=== PATIENT | female | born 1985 | race Caucasian/White ===

== ENCOUNTER → 2022-12-20 | Outpatient (CLI) | payer BC ==
[2022-12-20 16:15] LABS: Basophils # (A) 0.01 X 10*3/uL (0.00-0.10); Basophils % (A) 0.2 %; Eosinophils # (A) 0.03 X 10*3/uL (0.04-0.35); Eosinophils % (A) 0.7 %; HGB 13.2 d/dL (12.0-15.0); Lymphocytes # (A) 1.19 X 10*3/uL (0.90-5.00); Lymphocytes % (A) 29.3 %; MCH 30.6 pg (27.0-32.0); MCV 92.8 FL (80.0-97.0); Mean Platelet Volume 10.3 FL (9.5-12.2); Monocytes # (A) 0.32 X 10*3/uL (0.20-1.00); Monocytes % (A) 7.9 %; NRBC Per 100 WBC 0 X 10*3/uL (0.00-0.01); Neutrophils % (A) 61.7 %; Platelet Count 349 X 10*3/uL (140-440); RBC 4.31 X 10*6/uL (4.10-5.20); RDW 11.9 % (11.5-14.5); WBC 4.06 X 10*3/uL (4.50-10.00)
[2022-12-20 16:30] LABS: ALT 16 U/L (8-44); AST 15 U/L (13-35); Albumin 4.6 d/dL (3.8-4.9); Albumin/Globulin Ratio 1.84 Ratio (1.60-3.17); Alkaline Phosphatase 75 U/L (41-126); BUN/Creat Ratio 12.29 Ratio (12.00-20.00); Blood Urea Nitrogen 8.6 mg/dL (9.0-27.0); Calcium 9.5 mg/dL (8.7-10.3); Carbon Dioxide 25.8 mmol/L (21.6-31.8); Chloride 104 mmol/L (96-109); Chol/HDL Ratio 2.39 Ratio; Globulin 2.5 d/dL (1.6-3.3); Glucose 86 mg/dL (70-110); Potassium 4.2 mmol/L (3.5-5.5); Sodium 140 mmol/L (135-145); Total Bilirubin 0.5 mg/dL (0.3-1.2); Total Protein 7.1 d/dL (6.2-8.2); VLDL Calculation 8.34 mg/dL (5.00-40.00)
[2022-12-20 17:09] LABS: Hepatitis B Surface Antigen Nonreactive; Hepatitis C IgG Antibody Nonreactive
[2022-12-20 20:47] LABS: Hepatitis B Surface AB- Quant 6.7 mIU/mL
[2022-12-21 17:32] LABS: HIV 2 AB Non-Reactive (Non-Reactive); HIV AB P24 Non-Reactive (Non-Reactive); HIV P24 AG Non-Reactive (Non-Reactive)
== END | disposition home or self-care (01) ==
LOC: LABWHC1 10:36
PROVIDERS: ATTEND Family Medicine
DX: Z11.4 Encounter for screening for human immunodeficiency virus [HIV] (principal); Z11.59 Encounter for screening for other viral diseases; Z13.220 Encounter for screening for lipoid disorders; G44.019 Episodic cluster headache, not intractable; R12 Heartburn
CPT/HCPCS: 36415; 80053; 80061; 82306; 83036; 84443; 85025; 86706; 86780; 86803; 87340; 87390

== ENCOUNTER 2023-02-18 13:11 | Observation (INO) | payer BC ==
[2023-02-18 13:44] LABS: Basophils % (A) 0 %; Eosinophils # (A) 0.1 k/uL (0-0.7); Eosinophils % (A) 2 %; HCT 37.9 % (34.0-46.0); Lymphocytes # (A) 1.3 k/uL (1.0-4.8); Lymphocytes % (A) 29 %; MCH 31.1 pg (25.0-35.0); MCHC 34.3 g/dL (31.0-37.0); MCV 90.8 fL (80.0-100.0); Mean Platelet Volume 7.6; Monocytes # (A) 0.3 k/uL (0-1.0); Monocytes % (A) 6 %; Neutrophils # (A) 2.7 k/uL (1.3-7.7); Neutrophils % (A) 62 %; Platelet Count 320 k/uL (150-450); RBC 4.17 m/uL (3.80-5.40); RDW 12.1 % (11.5-15.5); WBC 4.4 k/uL (3.8-10.6)
[2023-02-18 13:56] LABS: ALT 17 U/L (4-34); AST 22 U/L (14-36); African American GFR (CKD) >90 (>60 ml/min/1.73 sqM); Albumin 4.4 g/dL (3.5-5.0); Alkaline Phosphatase 60 U/L (38-126); Anion Gap 7 mmol/L; Blood Urea Nitrogen 10 mg/dL (7-17); Calcium 9.7 mg/dL (8.4-10.2); Carbon Dioxide 25 mmol/L (22-30); Chloride 107 mmol/L (98-107); Glucose 100 mg/dL (74-99); INR 0.9 (<1.2); Magnesium 1.9 mg/dL (1.6-2.3); Non-African American GFR(CKD) >90 (>60 ml/min/1.73 sqM); Partial Thromboplastin Time 23.1 sec (22.0-30.0); Potassium 4.4 mmol/L (3.5-5.1); Prothrombin Time 9.9 sec (9.0-12.0); Sodium 139 mmol/L (137-145); Total Bilirubin 0.5 mg/dL (0.2-1.3); Total Protein 7.3 g/dL (6.3-8.2)
--- NOTE | 2023-02-18 14:39 | XR ---
EXAMINATION TYPE: XR chest 2V DATE OF EXAM: 02/18/2023 COMPARISON: NONE HISTORY: Chest pain TECHNIQUE: Frontal and lateral views of the chest are obtained. FINDINGS: There is no focal air space opacity. No evidence for pneumothorax. No pleural effusion. The cardiac silhouette size is within normal limits. The osseous structures are grossly intact. IMPRESSION: 1. No acute cardiopulmonary process.
[2023-02-18] MEDS ORDERED: FAMOTIDINE 20 MG/2 ML VIAL IV STA (15:33)
[2023-02-18] MEDS ORDERED: SODIUM CHLORIDE 0.9% 1,000 ML IV STA (15:33)
[2023-02-18] MEDS ORDERED: KETOROLAC 15 MG/ML 1 ML VIAL IVP STA (15:33)
[2023-02-18] MEDS ORDERED: ONDANSETRON 4 MG/2 ML VIAL IVP STA (15:33)
--- NOTE | 2023-02-18 16:25 | ED ---
Abdominal Pain HPI - General Chief Complaint: Abdominal Pain Stated Complaint: abdominal pain Time Seen by Provider: 02/18/23 15:18 Source: patient, RN notes reviewed Mode of arrival: ambulatory Limitations: no limitations - History of Present Illness Initial Comments: This is a 37-year-old female who presents to the emergency department for abdominal pain. States that over the last couple of days she has had increasing pain to the epigastric region with associated nausea. Every time she eats, she gets incredibly nauseous, and as a result she has stopped eating. States that this is not manageable for her, as she is taking care of young children. She is also 14 months and is currently . She is being evaluated by her primary care provider and being worked up for a hiatal hernia. Current workup at this time has included lab work and an x-ray, which were both found to be negative. Patient states that she is struggling with acid reflux as well and has been taking multiple antacids without relief in symptoms. Denies any fevers, chills, sore throat, cough, dyspnea, chest pain, palpitations, diarrhea, back pain, or headaches. MD Complaint: abdominal pain - Related Data Home Medications Medication Instructions Recorded Confirmed Azelastine/Fluticasone 1 spray EA NOSTRIL DAILY 02/18/23 02/18/23 [Azelastin-Flutic 137-50Mcg Spr] Calcium Carbonate [Tums] 1,000 mg PO ACHS PRN 02/18/23 02/18/23 Famotidine [Pepcid] 20 mg PO BID PRN 02/18/23 02/18/23 Promethazine [Phenergan] 25 mg PO Q6H PRN 02/18/23 02/18/23 SUMAtriptan [SUMAtriptan Nasal 5 mg NASAL BID PRN 02/18/23 02/18/23 [place]] Allergies Allergy/AdvReac Type Severity Reaction Status Date / Time banana Allergy Anaphylaxis Verified 02/19/23 16:04 Milam And Derivatives Allergy Anaphylaxis Verified 02/19/23 16:04 tree nut [Nut] Allergy Anaphylaxis Verified 02/19/23 16:04 Review of Systems ROS Statement: Those systems with pertinent positive or pertinent negative responses have been documented in the HPI. ROS Other: All systems not noted in ROS Statement are negative. Past Medical History Past Medical History: No Reported History History of Any Multi-Drug Resistant Organisms: None Reported Additional Past Surgical History / Comment(s): IVF Past Psychological History: No Psychological Hx Reported Smoking Status: Never smoker Past Alcohol Use History: None Reported Past Drug Use History: None Reported General Exam Limitations: no limitations General appearance: alert, in no apparent distress Head exam: Present: atraumatic, normocephalic, normal inspection Respiratory exam: Present: normal lung sounds bilaterally. Absent: respiratory distress, wheezes, rales, rhonchi, stridor Cardiovascular Exam: Present: regular rate, normal rhythm, normal heart sounds. Absent: systolic murmur, diastolic murmur, rubs, gallop, clicks GI/Abdominal exam: Present: soft, tenderness (RUQ and epigastric), normal bowel sounds. Absent: distended Neurological exam: Present: alert, oriented X3, CN II-XII intact Psychiatric exam: Present: normal affect, normal mood Skin exam: Present: warm, dry, intact, normal color. Absent: rash Course Vital Signs 02/18/23 02/18/23 02/18/23 13:16 17:56 22:09 Temperature 98.4 F 98.7 F 98.1 F Pulse Rate 89 75 Pulse Rate [ 74 Pulse Oximetery ] Respiratory 20 20 18 Rate Blood Pressure 128/92 108/63 Blood Pressure 112/76 [Right Arm] O2 Sat by Pulse 98 98 97 Oximetry 02/19/23 02/19/23 02/19/23 02:00 07:41 09:28 Temperature 98.1 F 97.9 F 97.8 F Pulse Rate 63 61 Pulse Rate [ 64 Pulse Oximetery ] Respiratory 16 18 18 Rate Blood Pressure 103/72 98/67 Blood Pressure 93/60 [Right Arm] O2 Sat by Pulse 95 98 98 Oximetry 02/19/23 15:30 Temperature 98.5 F Pulse Rate 86 Pulse Rate [ Pulse Oximetery ] Respiratory 16 Rate Blood Pressure 106/72 Blood Pressure [Right Arm] O2 Sat by Pulse 98 Oximetry Medical Decision Making - Medical Decision Making This is a 37-year-old female who presents to the emergency department for abdominal pain. Was pt. sent in by a medical professional or institution? @ -No Did you speak to anyone other than the patient for history? @ -No Did you review nursing and triage notes? @ -Yes, and I agree, it is accurate with regards to the patient's symptoms. Were old charts reviewed? @ -No Differential Diagnosis? @ -Differential Abdominal Pain Women: Appendicitis, Cholecystitis, diverticulosis, ischemic bowel, pancreatitis, hepatitis, UTI, gastroenteritis, AAA, incarcerated hernia, bowel obstruction, constipation, inflammatory bowel, hepatitis, peptic ulcer disease, splenic infarction, perforated viscus, vulvitis, ovarian torsion, PID, kidney stone, placenta abruption, this is not meant to be an all-inclusive list EKG interpreted by me (3pts min.)? @ -EKG interpreted by me demonstrating the following: X-rays interpreted by me (1pt min.)? @ -Chest x-ray obtained, my interpretation identifies no localized consolidations or infiltrates. CT interpreted by me (1pt min.)? @ -Not obtained U/S interpreted by me (1pt. min.)? @ -Gallbladder ultrasound obtained. My interpretation identifies cholelithiasis What testing was considered but not performed? (CT, X-rays, U/S, labs)? Why? @ -None What meds were considered but not given? Why? @ -None Did you discuss the management of the patient with other professionals? @ -Yes, Dr. Shrestha, who accepts the patient for admission. Did you reconcile home meds? @ -Yes Was smoking cessation discussed for >3mins.? @ -No Was critical care preformed (if so, how long)? @ -No Were there social determinants of health that impacted care today? How? (Homelessness, low income, unemployed, alcoholism, drug addiction, transportation, low edu. Level, literacy, decrease access to med. care, penitentiary, rehab)? @ -No Was there de-escalation of care discussed even if they declined? (Discuss DNR or withdrawal of care, Hospice)? @ -No What co-morbidities impacted this encounter? (DM, HTN, Smoking, COPD, CAD, Cancer, CVA, Hep., AIDS, mental health diagnosis, sleep apnea, morbid obesity)? @ -GERD Was patient admitted / discharged? @ -Admitted. Lab work obtained and found to be nonactionable. Chest x-ray reveals no acute process. Gallbladder ultrasound obtained revealing multiple gallstones without evidence for acute cholecystitis. She does have positive Gamez's sign on my physical examination and on the ultrasound. Findings reviewed with the patient. She is concerned with regards to how symptomatic she has been in that she has been unable to eat or care for her family given the severity of her pain, and is worried about being able tolerate this at home for the mean time. I spoke with Dr. Shrestha, who agrees to admit the patient with tentative plan for cholecystectomy tomorrow. Patient started on IV fluids and kept NPO after midnight. Undiagnosed new problem with uncertain prognosis? @ -None Drug Therapy requiring intensive monitoring for toxicity (Heparin, Nitro, Insulin, Cardizem)? @ -None Were any procedures done? @ -None Diagnosis/symptom? @ -Symptomatic cholelithiasis Acute, or Chronic, or Acute on Chronic? @ -Acute Uncomplicated (without systemic symptoms) or Complicated (systemic symptoms)? @ -Uncomplicated Side effects of treatment? @ -None Exacerbation, Progression, or Severe Exacerbation] @ -Not applicable Poses a threat to life or bodily function? @ -Yes This case was discussed in detail with the attending ED physician, Dr. Mercer. Presentation, findings, and treatment plan discussed in detail as well. - Lab Data Result diagrams: 02/18/23 13:29 02/18/23 13:29 Lab Results 02/18/23 02/18/23 02/18/23 Range/Units 13:29 13:29 13:29 WBC 4.4 (3.8-10.6) k/uL RBC 4.17 (3.80-5.40) m/uL Hgb 13.0 (11.4-16.0) gm/dL Hct 37.9 (34.0-46.0) % MCV 90.8 (80.0-100.0) fL MCH 31.1 (25.0-35.0) pg MCHC 34.3 (31.0-37.0) g/dL RDW 12.1 (11.5-15.5) % Plt Count 320 (150-450) k/uL MPV 7.6 Neutrophils % 62 % Lymphocytes % 29 % Monocytes % 6 % Eosinophils % 2 % Basophils % 0 % Neutrophils # 2.7 (1.3-7.7) k/uL Lymphocytes # 1.3 (1.0-4.8) k/uL Monocytes # 0.3 (0-1.0) k/uL Eosinophils # 0.1 (0-0.7) k/uL Basophils # 0.0 (0-0.2) k/uL PT 9.9 (9.0-12.0) sec INR 0.9 (<1.2) APTT 23.1 (22.0-30.0) sec Sodium 139 (137-145) mmol/L Potassium 4.4 (3.5-5.1) mmol/L Chloride 107 (98-107) mmol/L Carbon Dioxide 25 (22-30) mmol/L Anion Gap 7 mmol/L BUN 10 (7-17) mg/dL Creatinine 0.64 (0.52-1.04) mg/dL Est GFR (CKD-EPI)AfAm >90 (>60 ml/min/1.73 sqM) Est GFR (CKD-EPI)NonAf >90 (>60 ml/min/1.73 sqM) Glucose 100 H (74-99) mg/dL Calcium 9.7 (8.4-10.2) mg/dL Magnesium 1.9 (1.6-2.3) mg/dL Total Bilirubin 0.5 (0.2-1.3) mg/dL AST 22 (14-36) U/L ALT 17 (4-34) U/L Alkaline Phosphatase 60 (38-126) U/L Troponin I (0.000-0.034) ng/mL Total Protein 7.3 (6.3-8.2) g/dL Albumin 4.4 (3.5-5.0) g/dL 02/18/23 Range/Units 13:29 WBC (3.8-10.6) k/uL RBC (3.80-5.40) m/uL Hgb (11.4-16.0) gm/dL Hct (34.0-46.0) % MCV (80.0-100.0) fL MCH (25.0-35.0) pg MCHC (31.0-37.0) g/dL RDW (11.5-15.5) % Plt Count (150-450) k/uL MPV Neutrophils % % Lymphocytes % % Monocytes % % Eosinophils % % Basophils % % Neutrophils # (1.3-7.7) k/uL Lymphocytes # (1.0-4.8) k/uL Monocytes # (0-1.0) k/uL Eosinophils # (0-0.7) k/uL Basophils # (0-0.2) k/uL PT (9.0-12.0) sec INR (<1.2) APTT (22.0-30.0) sec Sodium (137-145) mmol/L Potassium (3.5-5.1) mmol/L Chloride (98-107) mmol/L Carbon Dioxide (22-30) mmol/L Anion Gap mmol/L BUN (7-17) mg/dL Creatinine (0.52-1.04) mg/dL Est GFR (CKD-EPI)AfAm (>60 ml/min/1.73 sqM) Est GFR (CKD-EPI)NonAf (>60 ml/min/1.73 sqM) Glucose (74-99) mg/dL Calcium (8.4-10.2) mg/dL Magnesium (1.6-2.3) mg/dL Total Bilirubin (0.2-1.3) mg/dL AST (14-36) U/L ALT (4-34) U/L Alkaline Phosphatase (38-126) U/L Troponin I <0.012 (0.000-0.034) ng/mL Total Protein (6.3-8.2) g/dL Albumin (3.5-5.0) g/dL - Radiology Data Radiology results: report reviewed, image reviewed Disposition Clinical Impression: Symptomatic cholelithiasis, Intractable pain Disposition: ADMITTED IP TO THIS HOSP
--- NOTE | 2023-02-18 16:28 | US ---
EXAMINATION TYPE: US gallbladder DATE OF EXAM: 02/18/2023 COMPARISON: NONE CLINICAL INDICATION: Female, 37 years old with history of Epigastric pain, nausea; abd pain with n/v TECHNIQUE: Multiple sonographic images of the right upper quadrant are obtained. FINDINGS: EXAM MEASUREMENTS: Liver Length: 15.9 cm Gallbladder Wall: 0.2 cm CBD: 0.5 cm Right Kidney: 11.1 x 4.2 x 3.6 cm Pancreas: wnl Liver: wnl Gallbladder: multiple stones seen filling up GB, no wall thickening Evidence for sonographic Gamez's sign: yes CBD: wnl Right Kidney: wnl IMPRESSION: Cholelithiasis.
[2023-02-18] MEDS ORDERED: NALOXONE 0.4 MG/ML 1 ML VIAL IV PRN (16:43)
[2023-02-18] MEDS ORDERED: ONDANSETRON 4 MG/2 ML VIAL IVP PRN (16:43)
[2023-02-18] MEDS ORDERED: MORPHINE SULFATE 4 MG/ML SYRINGE IV PRN (16:43)
[2023-02-18] MEDS: SODIUM CHLORIDE 0.9% 1,000 ML IV SCH (17:27)
[2023-02-18] MEDS ORDERED: SUMATRIPTAN 5 MG MISCELLANE PRN (17:45)
[2023-02-18] MEDS: ACETAMINOPHEN TAB 325 MG TAB PO PRN (22:54)
[2023-02-18] MEDS: PROMETHAZINE 25 MG TAB PO PRN (22:54)
[2023-02-19] MEDS: SODIUM CHLORIDE 0.9% 1,000 ML IV SCH ×3 (06:42→19:43)
[2023-02-19] MEDS: ACETAMINOPHEN TAB 325 MG TAB PO PRN ×2 (08:13→14:36)
[2023-02-19] MEDS: PROMETHAZINE 25 MG TAB PO PRN ×3 (08:14→20:51)
[2023-02-19] MEDS: FAMOTIDINE 20 MG TAB PO PRN (13:20)
--- NOTE | 2023-02-19 13:50 | P.CONS ---
History of Present Illness - Reason for Consult Preoperative clearance - History of Present Illness 37-year-old pleasant female is admitted the with the pain in the epigastric area associated with food severe pain. Patient also found to have cholelithiasis and patient is undergoing cholecystectomy medicine was consulted for preoperative clearance patient doesn't have any significant medical problems except for cluster headaches for which patient is on sumatriptan. Patient denied any fever chills patient doesn't have any clinical evidence of cholecystitis REVIEW OF SYSTEMS: CONSTITUTIONAL: No fever, no malaise, no fatigue. HEENT: No recent visual problems or hearing problems. Denied any sore throat. CARDIOVASCULAR: No chest pain, orthopnea, PND, no palpitations, no syncope. PULMONARY: No shortness of breath, no cough, no hemoptysis. GASTROINTESTINAL: As mentioned in HPI NEUROLOGICAL: No headaches, no weakness, no numbness. HEMATOLOGICAL: Denies any bleeding or petechiae. GENITOURINARY: Denies any burning micturition, frequency, or urgency. MUSCULOSKELETAL/RHEUMATOLOGICAL: Denies any joint pain, swelling, or any muscle pain. ENDOCRINE: Denies any polyuria or polydipsia. The rest of the 14-point review of systems is negative. PHYSICAL EXAMINATION: GENERAL: The patient is alert and oriented x3, not in any acute distress. Well developed, well nourished. HEENT: Pupils are round and equally reacting to light. EOMI. No scleral icterus. No conjunctival pallor. Normocephalic, atraumatic. No pharyngeal erythema. No thyromegaly. CARDIOVASCULAR: S1 and S2 present. No murmurs, rubs, or gallops. PULMONARY: Chest is clear to auscultation, no wheezing or crackles. ABDOMEN: Soft, nontender, nondistended, normoactive bowel sounds. No palpable organomegaly. MUSCULOSKELETAL: No joint swelling or deformity. EXTREMITIES: No cyanosis, clubbing, or pedal edema. NEUROLOGICAL: Gross neurological examination did not reveal any focal deficits. SKIN: No rashes. Assessment and plan -Cholelithiasis, preoperative sugars: Patient is low operative risk for surgery. Patient doesn't have any evidence of cholecystitis, preoperative antibiotics as per primary service -History of cluster headaches continue with home regimen DVT prophylaxis: Early ambulation Past Medical History Past Medical History: No Reported History Additional Past Medical History / Comment(s): cluster headaches History of Any Multi-Drug Resistant Organisms: None Reported Additional Past Surgical History / Comment(s): IVF, Additional Past Anesthesia/Blood Transfusion Reaction / Comm: headaches Past Psychological History: No Psychological Hx Reported Smoking Status: Never smoker Past Alcohol Use History: None Reported Past Drug Use History: None Reported Medications and Allergies Home Medications Medication Instructions Recorded Confirmed Type Azelastine/Fluticasone 1 spray EA NOSTRIL DAILY 02/18/23 02/18/23 History [Azelastin-Flutic 137-50Mcg Spr] Calcium Carbonate [Tums] 1,000 mg PO ACHS PRN 02/18/23 02/18/23 History Famotidine [Pepcid] 20 mg PO BID PRN 02/18/23 02/18/23 History Promethazine [Phenergan] 25 mg PO Q6H PRN 02/18/23 02/18/23 History SUMAtriptan [SUMAtriptan Nasal 5 mg NASAL BID PRN 02/18/23 02/18/23 History [place]] Allergies Allergy/AdvReac Type Severity Reaction Status Date / Time No Known Allergies Allergy Verified 02/18/23 17:28 Physical Exam Vitals: Vital Signs Temp Pulse Pulse Resp BP BP Pulse Ox 02/19/23 09:28 97.8 F 61 18 98/67 98 02/19/23 07:41 97.9 F 63 18 103/72 98 02/19/23 02:00 98.1 F 64 16 93/60 95 02/18/23 22:09 98.1 F 74 18 112/76 97 02/18/23 17:56 98.7 F 75 20 108/63 98 Intake and Output 02/18/23 02/19/23 02/19/23 22:59 06:59 14:59 Intake Total 500 1500 Balance 500 1500 Intake: Oral 500 1500 Other: # Voids 2 2 Weight 68.039 kg Results CBC & Chem 7: 02/18/23 13:29 02/18/23 13:29 Labs: Abnormal Lab Results - Last 24 Hours (Table) 02/18/23 Range/Units 13:29 Glucose 100 H (74-99) mg/dL
--- NOTE | 2023-02-19 14:10 | P.GSHP ---
History of Present Illness H&P Date: 02/19/23 CHIEF COMPLAINT: Abdominal pain HISTORY OF PRESENT ILLNESS: This is a 37-year-old female who presented with abdominal pain. She reports the pain is in the epigastric area and across the upper abdomen and radiates to the back. She has pain after eating. She reports this episode of pain has lasted for about 72 hours. She is had intermittent pain over the last 2 years. She feels that this pain had started during her . She's 14 months . She still pumping. Gallbladder ultr asound did show evidence of gallstones. She denies any fever chills or sweats. Denies any cardiac history. Denies being on any blood thinners. Denies any prior abdominal surgeries. PAST MEDICAL HISTORY: See below PAST SURGICAL HISTORY: See below MEDICATIONS: See below ALLERGIES: See below SOCIAL HISTORY: No illicit drug use. REVIEW OF SYSTEMS: CONSTITUTIONAL: Denies fever or chills. HEENT: Denies blurred vision, vision changes, or eye pain. Denies hemoptysis CARDIOVASCULAR: Denies chest pain or pressure. RESPIRATORY: No shortness of breath. GASTROINTESTINAL: See HPI for pertinent findings HEMATOLOGIC: Denies bleeding disorders. GENITOURINARY: Denies any blood in urine or increased urinary frequency. SKIN: Denies pruitis. Denies rash. PHYSICAL EXAM: VITAL SIGNS: Reviewed GENERAL: Well-developed in no acute distress. ABDOMEN: Soft. Nondistended. Tenderness on palpation in epigastric and left upper quadrant NEUROLOGIC: Alert and oriented. Cranial nerves II through XII grossly intact. LABORATORY DATA: WBC 4.4 Hgb 13 platelets 320 INR 0.9 Sodium 139 potassium 4.4 creatinine 0.64 Glucose 100 LFTs normal Urine hCG not detected IMAGING: Gallbladder ultrasound cholelithiasis Chest x-ray no acute cardiopulmonary process ASSESSMENT: 1. Abdominal pain across the upper abdomen with cholelithiasis noted on ultrasound 2. Symptomatic cholelithiasis PLAN: -Patient scheduled for laparoscopic cholecystectomy today with Dr. romano -Keep patient nothing by mouth -Continue IV fluids -Continue supportive care -Medicine service consulted for medical management Physician Director Of [employer] note has been reviewed by physician. Signing provider agrees with the documented findings, assessment, and plan of care. Past Medical History Past Medical History: No Reported History Additional Past Medical History / Comment(s): cluster headaches History of Any Multi-Drug Resistant Organisms: None Reported Additional Past Surgical History / Comment(s): IVF, Additional Past Anesthesia/Blood Transfusion Reaction / Comment(s): headaches Past Psychological History: No Psychological Hx Reported Smoking Status: Never smoker Past Alcohol Use History: None Reported Past Drug Use History: None Reported Medications and Allergies Home Medications Medication Instructions Recorded Confirmed Type Azelastine/Fluticasone 1 spray EA NOSTRIL DAILY 02/18/23 02/18/23 History [Azelastin-Flutic 137-50Mcg Spr] Calcium Carbonate [Tums] 1,000 mg PO ACHS PRN 02/18/23 02/18/23 History Famotidine [Pepcid] 20 mg PO BID PRN 02/18/23 02/18/23 History Promethazine [Phenergan] 25 mg PO Q6H PRN 02/18/23 02/18/23 History SUMAtriptan [SUMAtriptan Nasal 5 mg NASAL BID PRN 02/18/23 02/18/23 History [place]] Allergies Allergy/AdvReac Type Severity Reaction Status Date / Time No Known Allergies Allergy Verified 02/18/23 17:28 Surgical - Exam Vital Signs Temp Pulse Resp BP Pulse Ox 98.4 F 89 20 128/92 98 02/18/23 13:16 02/18/23 13:16 02/18/23 13:16 02/18/23 13:16 02/18/23 13:16 Results - Labs 02/18/23 13:29 02/18/23 13:29 Abnormal Lab Results - Last 24 Hours (Table) 02/18/23 Range/Units 13:29 Glucose 100 H (74-99) mg/dL Diabetes panel 02/18/23 Range/Units 13:29 Sodium 139 (137-145) mmol/L Potassium 4.4 (3.5-5.1) mmol/L Chloride 107 (98-107) mmol/L Carbon Dioxide 25 (22-30) mmol/L BUN 10 (7-17) mg/dL Creatinine 0.64 (0.52-1.04) mg/dL Glucose 100 H (74-99) mg/dL Calcium 9.7 (8.4-10.2) mg/dL AST 22 (14-36) U/L ALT 17 (4-34) U/L Alkaline Phosphatase 60 (38-126) U/L Total Protein 7.3 (6.3-8.2) g/dL Albumin 4.4 (3.5-5.0) g/dL Calcium panel 02/18/23 Range/Units 13:29 Calcium 9.7 (8.4-10.2) mg/dL Albumin 4.4 (3.5-5.0) g/dL Pituitary panel 02/18/23 Range/Units 13:29 Sodium 139 (137-145) mmol/L Potassium 4.4 (3.5-5.1) mmol/L Chloride 107 (98-107) mmol/L Carbon Dioxide 25 (22-30) mmol/L BUN 10 (7-17) mg/dL Creatinine 0.64 (0.52-1.04) mg/dL Glucose 100 H (74-99) mg/dL Calcium 9.7 (8.4-10.2) mg/dL Adrenal panel 02/18/23 Range/Units 13:29 Sodium 139 (137-145) mmol/L Potassium 4.4 (3.5-5.1) mmol/L Chloride 107 (98-107) mmol/L Carbon Dioxide 25 (22-30) mmol/L BUN 10 (7-17) mg/dL Creatinine 0.64 (0.52-1.04) mg/dL Glucose 100 H (74-99) mg/dL Calcium 9.7 (8.4-10.2) mg/dL Total Bilirubin 0.5 (0.2-1.3) mg/dL AST 22 (14-36) U/L ALT 17 (4-34) U/L Alkaline Phosphatase 60 (38-126) U/L Total Protein 7.3 (6.3-8.2) g/dL Albumin 4.4 (3.5-5.0) g/dL
[2023-02-19] MEDS ORDERED: HEPARIN SODIUM,PORCINE/PF 5,000 UNIT/0.5 ML SYRINGE SQ ONE (16:10)
[2023-02-19] MEDS ORDERED: LACTATED RINGERS 1,000 ML IV ONE (16:12)
[2023-02-19] MEDS ORDERED: HEPARIN SODIUM,PORCINE 5,000 UNIT/ML 1 ML VIAL SQ ONE (16:14)
[2023-02-19] MEDS ORDERED: DEXAMETHASONE SOD PHOSPHATE 4 MG/ML 1 ML VIAL IVP ONE (16:33)
[2023-02-19] MEDS ORDERED: MIDAZOLAM 2 MG/2 ML VIAL IVP ONE (16:35)
[2023-02-19] MEDS ORDERED: KETOROLAC 15 MG/ML 1 ML VIAL ONE (16:50)
[2023-02-19] MEDS ORDERED: fentaNYL (PF) 50 MCG/ML 2 ML AMP ONE (16:50)
[2023-02-19] MEDS ORDERED: GLYCOPYRROLATE 0.2 MG/ML 2 ML VIAL ONE (16:50)
[2023-02-19] MEDS ORDERED: LIDOCAINE 2% INJ 20 MG/ML (2 ML VIAL) ONE (16:50)
[2023-02-19] MEDS ORDERED: NEOSTIGMINE 1 MG/ML 10 ML VIAL ONE (16:50)
[2023-02-19] MEDS ORDERED: PROPOFOL 10 MG/ML 20 ML VIAL IV ONE (16:50)
[2023-02-19] MEDS ORDERED: ROCURONIUM 10 MG/ML (5 ML VIAL) IV ONE (16:50)
[2023-02-19] MEDS ORDERED: HYDROmorphone (PF) 1 MG/ML ONE (16:50)
[2023-02-19] MEDS ORDERED: SUCCINYLCHOLINE CHLORIDE 200 MG/10 ML VIAL IV ONE (16:50)
[2023-02-19] MEDS ORDERED: SODIUM CHLORIDE 0.9% 50 ML with ceFAZolin 2 GM IV ONE ×2 (16:55)
[2023-02-19] MEDS ORDERED: LIDOCAINE 1%-EPI 1:100,000 50 ML VIAL SQ ONE ×2 (17:00)
[2023-02-19] MEDS ORDERED: HYDROmorphone 1 MG/ML 1 ML SYRINGE IVP PRN (17:45)
--- NOTE | 2023-02-19 17:45 | P.OP ---
Date of Procedure: 02/19/23 Preoperative Diagnosis: Cholecystitis Cholelithiasis Postoperative Diagnosis: Same Procedure(s) Performed: Laparoscopic cholecystectomy Anesthesia: TARI Surgeon: Chris Shrestha Estimated Blood Loss (ml): 5 Pathology: other (Gallbladder) Condition: stable Disposition: PACU Description of Procedure: The patient was placed on the operating table. The patient received a general endotracheal tube anesthesia. The patients abdomen was prepped and draped in the usual sterile fashion. Through an infraumbilical stab incision, the fascia of the anterior abdominal wall was grasped with a pair of Kochers and then the Veress needle was placed in the peritoneal cavity. Position of the Veress needle was confirmed with positive drop test. The abdomen was then insufflated. After adequate insufflation, the 10 mm trocar was placed in the peritoneal cavity. Following this the laparoscope was placed in the peritoneal cavity. The patient was placed in the head-up, right side up position and then a 5 mm trocar was placed in the right lateral and right subcostal po sition under direct visualization. A 8 mm trocar was placed in the epigastric position. The gallbladder was grasped in the fundus and infundibulum. Traction on the gallbladder was placed in the lateral and the cephalad positions. The triangle of Calot was visualized.. The cystic duct was bluntly dissected until the union of the cystic duct and common bile duct was seen. A critical view of safety was achieved. The cystic duct was then divided and sealed with the Harmonic scissors. A PDS Endoloop was then placed throughout the cystic duct stump. The cystic artery divided and sealed with the Harmonic scissors. The gallbladder was then removed from the liver bed using Harmonic scissors. The gallbladder was then extracted through the epigastric port site. Operative field was checked for any bleeding spots and Harmonic scissors was used to coagulate the liver bed. The abdomen was irrigated. The trocars were removed. The skin was closed using interrupted 3-0 Vicryl suture. Dermabond dressing were applied. The patient tolerated the procedure well.
[2023-02-19] MEDS ORDERED: HYDROmorphone 0.5 MG/0.5 ML SYRINGE IVP ONE (18:25)
[2023-02-19] MEDS: MORPHINE SULFATE 2 MG/ML SYRINGE IVP PRN (20:40)
[2023-02-19] MEDS: CALCIUM CARBONATE 500 MG CHEWABLE PO PRN (21:00)
[2023-02-20] MEDS: CALCIUM CARBONATE 500 MG CHEWABLE PO PRN (00:07)
[2023-02-20] MEDS: FAMOTIDINE 20 MG TAB PO PRN (00:07)
[2023-02-20] MEDS: MORPHINE SULFATE 2 MG/ML SYRINGE IVP PRN (00:07)
[2023-02-20] MEDS: PROMETHAZINE 25 MG TAB PO PRN ×2 (03:06→10:42)
[2023-02-20] MEDS: SODIUM CHLORIDE 0.9% 1,000 ML IV SCH (06:12)
[2023-02-20 09:44] VITALS: BP 100/67; PULSE 83; RESP 16; TEMP 97.5
--- NOTE | 2023-02-20 10:22 | P.DS ---
Providers Date of admission: 02/18/23 16:44 Expected date of discharge: 02/20/23 Attending physician: Chris Shrestha Consults: 02/19/23 09:34 Consult Physician Routine Consulting Provider: Dinh Tamayo Consult Reason/Comments: medical management Do you want consulting provider notified?: Yes [facility] care [facility] Course: Discharge diagnosis 1. Cholecystitis and cholelithiasis status post laparoscopic cholecystectomy Hospital course This is a 37-year-old female who presented with abdominal pain across the upper abdomen. Gallbladder had shown evidence of gallstones. She is found have evidence of a cholecystitis and cholelithiasis. She is status post laparoscopic cholecystectomy. She tolerated surgery well. Pain is controlled. She is t olerating diet. She has been up and ambulating. She is afebrile. She is stable for discharge. Please refer to chart for any further details. Physician [employer] note has been reviewed by physician. Signing provider agrees with the documented findings, assessment, and plan of care. Patient Condition at Discharge: Stable Plan - Discharge Summary Discharge Rx Participant: No New Discharge Prescriptions: New Ibuprofen [Motrin] 600 mg PO Q8HR PRN #30 tab PRN Reason: Pain Acetaminophen Tab [Tylenol] 1,000 mg PO Q6HR PRN #30 tablet PRN Reason: Pain Continue Famotidine [Pepcid] 20 mg PO BID PRN PRN Reason: acid reflux Calcium Carbonate [Tums] 1,000 mg PO ACHS PRN PRN Reason: gi upset SUMAtriptan [SUMAtriptan Nasal [place]] 5 mg NASAL BID PRN PRN Reason: Migraine Headache Azelastine/Fluticasone [Azelastin-Flutic 137-50Mcg Spr] 1 spray EA NOSTRIL DAILY Promethazine [Phenergan] 25 mg PO Q6H PRN PRN Reason: Nausea Discharge Medication List Azelastine/Fluticasone [Azelastin-Flutic 137-50Mcg Spr] 1 spray EA NOSTRIL DAILY 02/18/23 [History] Calcium Carbonate [Tums] 1,000 mg PO ACHS PRN 02/18/23 [History] Famotidine [Pepcid] 20 mg PO BID PRN 02/18/23 [History] Promethazine [Phenergan] 25 mg PO Q6H PRN 02/18/23 [History] SUMAtriptan [SUMAtriptan Nasal [place]] 5 mg NASAL BID PRN 02/18/23 [History] Acetaminophen Tab [Tylenol] 1,000 mg PO Q6HR PRN #30 tablet 02/20/23 [Rx] Ibuprofen [Motrin] 600 mg PO Q8HR PRN #30 tab 02/20/23 [Rx] Follow up Appointment(s)/Referral(s): Nani Huang MD [Primary Care Provider] - 3 Days Chris Shrestha MD [STAFF PHYSICIAN] - 1 Week Activity/Diet/Wound Care/Special Instructions: No lifting over 10 pounds Shower daily. No soaking or tub baths for 2 weeks Very light activity until you are reevaluated at your follow up appointment with your surgeon Discharge Disposition: HOME SELF-CARE
[2023-02-20] MEDS: ACETAMINOPHEN TAB 325 MG TAB PO PRN (12:06)
--- NOTE | 2023-02-21 18:07 | P.PN ---
Subjective Progress Note Date: 02/20/23 37-year-old pleasant female is admitted the with the pain in the epigastric area associated with food severe pain. Patient also found to have cholelithiasis and patient is undergoing cholecystectomy medicine was consulted for preoperative clearance patient doesn't have any significant medical problems except for cluster headaches for which patient is on sumatriptan. Patient denied any fever chills patient doesn't have any clinical evidence of cholecystitis 02/20/2023 Patient evaluated today postoperative day #1 lap mane. Patient passing some flatus. No BM yet. Currently and dumping the milk. Tolerating some diet. Cleared for discharge home today. Review of Systems Constitutional: Denied any fatigue denied any fever. Cardio vascular: denied any chest pain, palpitations Gastrointestinal: denied any nausea, vomiting, diarrhea. Passing flatus, no BM. 5/10 abdominal pain. Pulmonary: Denied any shortness of breath cough Neurologic denied any new focal deficits All inpatient medications were reviewed and appropriate changes in these medications as dictated in the interval history and assessment and plan. PHYSICAL EXAMINATION: GENERAL: The patient is alert and oriented x3, not in any acute distress. Well developed, well nourished. HEENT: Pupils are round and equally reacting to light. EOMI. No scleral icterus. No conjunctival pallor. Normocephalic, atraumatic. No pharyngeal erythema. No thyromegaly. CARDIOVASCULAR: S1 and S2 present. No murmurs, rubs, or gallops. PULMONARY: Chest is clear to auscultation, no wheezing or crackles. ABDOMEN: Soft, nontender, nondistended, normoactive bowel sounds. No palpable organomegaly. Post surgical abdomen incisions intact. MUSCULOSKELETAL: No joint swelling or deformity. EXTREMITIES: No cyanosis, clubbing, or pedal edema. NEUROLOGICAL: Gross neurological examination did not reveal any focal deficits. SKIN: No rashes. Assessment and plan -Cholelithiasis status post laproscopic cholecystectomy -History of cluster headaches continue with home regimen - DVT prophylaxis: Early ambulation Cleared medically for discharge home today. The impression and plan of care has been dictated by Lluu Luz Nurse Practitioner as directed. Dr. Fco MD I have performed a history and physical examination and medical decision making of this patient, discussed the same with the dictator, and agree with the dictators assessment and plan as written, documented as a scribe. Based on total visit time, I have performed more than 50% of this visit. Objective - Vital Signs Vital signs: Vital Signs Temp 97.5 F L 02/20/23 07:00 Pulse 83 02/20/23 07:00 Resp 16 02/20/23 07:00 BP 100/67 02/20/23 07:00 Pulse Ox 97 02/20/23 07:00 FiO2 Intake & Output 02/19/23 02/20/23 02/20/23 18:59 06:59 18:59 Intake Total 850 Output Total 5 Balance 845 Intake: IV 850 Output: Estimated Blood Loss 5 Other: # Voids 2 - Labs CBC & Chem 7: 02/18/23 13:29 02/18/23 13:29 Assessment and Plan Time with Patient: Less than 30
== END 2023-02-20 12:18 | disposition home or self-care (01) ==
LOC: EC 13:11 → 6NMEDSUR 16:44
PROVIDERS: ADMIT Surgery; ATTEND Surgery
DX: K80.20 Calculus of gallbladder without cholecystitis without obstruction (principal); K21.9 Gastro-esophageal reflux disease without esophagitis; Z91.018 Allergy to other foods; K80.10 Calculus of gallbladder with chronic cholecystitis without obstruction; G44.009 Cluster headache syndrome, unspecified, not intractable; Z79.899 Other long term (current) drug therapy; Z39.1 Encounter for care and examination of lactating mother
CPT/HCPCS: 96361; 96374; 96375; 99285; 36415; 93005; 80053; 83735; 84484; 85025; 85610; 85730; 81025; 71046; 76705; 47562; G0378 ×3; J2250; J1644; J1100; J0690; J2405; J3490; J2270 ×2; J1170; 88304

== ENCOUNTER 2023-02-23 15:59 | Emergency (ER) | payer BC ==
[2023-02-23 16:27] VITALS: RESP 20
[2023-02-23] MEDS ORDERED: SODIUM CHLORIDE 0.9% 1,000 ML IV STA (16:35)
[2023-02-23 16:46] LABS: Basophils % (A) 0 %; Eosinophils # (A) 0.1 k/uL (0-0.7); Eosinophils % (A) 2 %; HCT 38.8 % (34.0-46.0); HGB 13.2 gm/dL (11.4-16.0); Lymphocytes # (A) 1.6 k/uL (1.0-4.8); Lymphocytes % (A) 19 %; MCH 30.9 pg (25.0-35.0); MCV 91.1 fL (80.0-100.0); Mean Platelet Volume 7.6; Monocytes # (A) 0.4 k/uL (0-1.0); Monocytes % (A) 5 %; Neutrophils % (A) 73 %; Platelet Count 305 k/uL (150-450); RBC 4.26 m/uL (3.80-5.40); WBC 8.2 k/uL (3.8-10.6)
[2023-02-23 16:57] LABS: ALT 55 U/L (4-34); AST 30 U/L (14-36); African American GFR (CKD) >90 (>60 ml/min/1.73 sqM); Albumin 4.4 g/dL (3.5-5.0); Alkaline Phosphatase 70 U/L (38-126); Anion Gap 10 mmol/L; Blood Urea Nitrogen 14 mg/dL (7-17); Carbon Dioxide 21 mmol/L (22-30); Chloride 106 mmol/L (98-107); Glucose 87 mg/dL (74-99); Non-African American GFR(CKD) >90 (>60 ml/min/1.73 sqM); Potassium 4.1 mmol/L (3.5-5.1); Sodium 137 mmol/L (137-145); Total Bilirubin 0.4 mg/dL (0.2-1.3); Total Protein 7.5 g/dL (6.3-8.2)
[2023-02-23 17:04] LABS: INR 0.9 (<1.2); Partial Thromboplastin Time 24.1 sec (22.0-30.0); Prothrombin Time 9.5 sec (9.0-12.0)
[2023-02-23 17:07] LABS: Appearance,Urine Clear (Clear); Bilirubin,Urine Negative (Negative); Blood,Urine Trace (Negative); Color,Urine Colorless; Glucose,Urine (UA) Negative (Negative); Ketones,Urine Negative (Negative); Leukocyte Esterase,Urine Negative (Negative); Mucus,Urine Rare /hpf; Nitrite,Urine Negative (Negative); Protein,Urine Negative (Negative); RBC,Urine 2 /hpf (0-5); Specific Gravity,Urine 1.014 (1.001-1.035); Squamous Epithelial Cell,Urine <1 /hpf (0-4); Urobilinogen,Urine <2.0 mg/dL (<2.0); WBC,Urine <1 /hpf (0-5)
[2023-02-23] MEDS ORDERED: KETOROLAC 15 MG/ML 1 ML VIAL IVP STA (17:38)
--- NOTE | 2023-02-23 19:22 | CT ---
EXAMINATION TYPE: CT chest angio for PE DATE OF EXAM: 02/23/2023 COMPARISON: NONE HISTORY: sob- post op gallbladder sx on sunday. CT DLP: 945.8 (combined) mGycm. Automated Exposure Control for Dose Reduction was Utilized. CONTRAST: CTA scan of the thorax is performed with IV Contrast, patient injected with 100ml mL of Iso dhruv 370. MIP Images are created on CT scanner and reviewed. 3D reconstructed images are created on a n independent workstation and reviewed. FINDINGS: LUNGS: The lungs are grossly clear, there is no concerning parenchymal mass or nodule identified. T here is no pleural effusion or pneumothorax seen. The tracheobronchial tree is patent. MEDIASTINUM: There is satisfactory enhancement of the pulmonary artery and its branches, there is no CT evidence for pulmonary embolism. There is no acute aortic process. There are no greater than 1 cm hilar or mediastinal lymph nodes. No cardiomegaly or pericardial effusion is seen. OTHER: No additional significant abnormality is seen. IMPRESSION: No acute process.
[2023-02-23 19:27] VITALS: BP 133/96; PULSE 86
--- NOTE | 2023-02-23 19:27 | CT ---
EXAMINATION TYPE: CT abdomen pelvis w con DATE OF EXAM: 02/23/2023 HISTORY: sob, pain- post op gallbladder sx on sunday. iso 370/100ml injected. priors CT DLP: 945.8 (combined)mGycm Automated Exposure Control for Dose Reduction was Utilized. CONTRAST: CT scan of the abdomen and pelvis is performed with IV Contrast, patient injected with 100m l mL of Isovue 370. COMPARISON: None FINDINGS: LUNG BASES: No significant abnormality is appreciated. LIVER/BILIARY: No significant abnormality is appreciated. Gallbladder fossa is unremarkable. PANCREAS: No significant abnormality is seen. SPLEEN: No significant abnormality is seen. ADRENALS: No significant abnormality is seen. KIDNEYS: No significant abnormality is seen. BOWEL: No significant abnormality is seen. Appendix is unremarkable. UTERUS/ADNEXA: There is a small amount of dependent cul-de-sac fluid on the right, and adjacent to a 1.8 cm diameter right ovarian cyst. Uterus is retroverted. LYMPH NODES: No greater than 1cm abdominal or pelvic lymph nodes are appreciated. OSSEOUS STRUCTURES: No significant abnormality is seen. OTHER: No significant additional abnormality is seen. IMPRESSION: Findings consistent with functional right ovarian cyst with associated small volume cul-de-sac fluid.
--- NOTE | 2023-02-23 19:43 | ED ---
General Adult HPI - General Chief complaint: Shortness of Breath Stated complaint: PO Surgery, SOB Time Seen by Provider: 02/23/23 16:18 Source: patient Mode of arrival: ambulatory Limitations: no limitations - History of Present Illness Initial comments: Patient is a 37-year-old female presents to the emergency department for shortness of breath. Patient had cholecystectomy on Sunday by Dr. Shrestha states for the past couple days she has felt short of breath. Patient states she feels a little short of breath at rest. She denies chest pain. She does admit to a mild dry cough and sore throat but thinks this may be due to intubation. She denies fever or other upper respiratory symptoms. States her abdominal pain is in her right upper abdomen and has been improving since the surgery. Patient has had nausea since the surgery which has been controlled nausea medication. She denies vomiting. No change in oral intake. No history of DVT or PE. No leg pain or swelling. Denies hormone replacement, long car rides, airplane travel, known cancers, family history of clotting, tobacco use. Patient does admit to immobilization after surgery this week. Patient sent from her primary care provider she had normal x-ray and EKG prior to arrival. - Related Data Home Medications Medication Instructions Recorded Confirmed Azelastine/Fluticasone 1 spray EA NOSTRIL DAILY 02/18/23 02/23/23 [Azelastin-Flutic 137-50Mcg Spr] Calcium Carbonate [Tums] 1,000 mg PO ACHS PRN 02/18/23 02/23/23 Famotidine [Pepcid] 20 mg PO BID PRN 02/18/23 02/23/23 Promethazine [Phenergan] 25 mg PO Q6H PRN 02/18/23 02/23/23 SUMAtriptan [SUMAtriptan Nasal 5 mg NASAL BID PRN 02/18/23 02/23/23 [place]] Previous Rx's Medication Instructions Recorded Acetaminophen Tab [Tylenol] 1,000 mg PO Q6HR PRN #30 tablet 02/20/23 Ibuprofen [Motrin] 600 mg PO Q8HR PRN #30 tab 02/20/23 Allergies Allergy/AdvReac Type Severity Reaction Status Date / Time banana Allergy Anaphylaxis Verified 02/23/23 16:33 [place] And Derivatives Allergy Anaphylaxis Verified 02/23/23 16:33 tree nut [Nut] Allergy Anaphylaxis Verified 02/23/23 16:33 Review of Systems ROS Statement: Those systems with pertinent positive or pertinent negative responses have been documented in the HPI. ROS Other: All systems not noted in ROS Statement are negative. Past Medical History Past Medical History: No Reported History Additional Past Medical History / Comment(s): cluster headaches History of Any Multi-Drug Resistant Organisms: None Reported Past Surgical History: Cholecystectomy Additional Past Surgical History / Comment(s): IVF Additional Past Anesthesia/Blood Transfusion Reaction / Comment(s): headaches Past Psychological History: No Psychological Hx Reported Smoking Status: Never smoker Past Alcohol Use History: None Reported Past Drug Use History: None Reported General Exam Limitations: no limitations General appearance: alert Eye exam: Present: normal appearance, PERRL, EOMI. Absent: scleral icterus, conjunctival injection, periorbital swelling Respiratory exam: Present: normal lung sounds bilaterally. Absent: respiratory distress, wheezes, rales, rhonchi, stridor Cardiovascular Exam: Present: regular rate, normal rhythm, normal heart sounds. Absent: systolic murmur, diastolic murmur, rubs, gallop, clicks GI/Abdominal exam: Present: soft, normal bowel sounds, other (Incision is healing nicely). Absent: distended, tenderness, guarding, rebound, rigid Neurological exam: Present: alert Psychiatric exam: Present: normal affect, normal mood Skin exam: Present: warm, dry, intact, normal color. Absent: rash Course Vital Signs 02/23/23 02/23/23 02/23/23 16:15 19:10 19:55 Temperature 98.2 F 98.0 F Pulse Rate 87 86 Respiratory 20 20 Rate Blood Pressure 115/82 133/96 O2 Sat by Pulse 96 99 Oximetry Medical Decision Making - Medical Decision Making EKG taken at 16:43, interpreted by myself Sinus rhythm, no ST changes Ventricular rate 82, NV interval 134, QRS ratio 87, QTc 384 Was pt. sent in by a medical professional or institution ([facility], STILL OPERATOR, urgent care, hospital, or retirement...) When possible be specific @ -Primary care provider prior to arrival Did you speak to anyone other than the patient for history (EMS, parent, family, police, friend...)? What history was obtained from this source @ -No Did you review nursing and triage notes (agree or disagree)? Why? @ -I reviewed and agree with nursing and triage notes Were old charts reviewed (outside hosp., previous admission, EMS record, old EKG, old radiological studies, urgent care reports/EKG's, retirement records)? Report findings @ -No old charts were reviewed Differential Diagnosis (chest pain, altered mental status, abdominal pain women, abdominal pain men, vaginal bleeding, weakness, fever, dyspnea, syncope, headache, dizziness, GI bleed, back pain, seizure, CVA, palpatations, mental health)? @ -Differential Dyspnea: Coronary syndrome, arrhythmia, tamponade, asthma, COPD, pulmonary embolism, pneumonia, pneumothorax, pulmonary effusion, anaphylaxis, diabetic ketoacidosis, flailed chest, pulmonary contusion, diaphragmatic rupture, anemia, neuromuscular, this is not meant to be an all-inclusive list. EKG interpreted by me (3pts min.). @ -As above X-rays interpreted by me (1pt min.). @ -None done CT interpreted by me (1pt min.). @ -None done U/S interpreted by me (1pt. min.). @ -None done What testing was considered but not performed or refused? (CT, X-rays, U/S, labs)? Why? @ -None What meds were considered but not given or refused? Why? @ -None Did you discuss the management of the patient with other professionals (professionals i.e. , PA, STILL OPERATOR, lab, RT, psych nurse, geriatric social worker, communications technologist, teacher, executive vice president and chief operating officer, case filler)? Give summary @ -No Was smoking cessation discussed for >3mins.? @ -No Was critical care preformed (if so, how long)? @ -No Were there social determinants of health that impacted care today? How? (Homelessness, low income, unemployed, alcoholism, drug addiction, t ransportation, low edu. Level, literacy, decrease access to med. care, longterm, rehab)? @ -No Was there de-escalation of care discussed even if they declined (Discuss DNR or withdrawal of care, Hospice)? DNR status @ -No What co-morbidities impacted this encounter? (DM, HTN, Smoking, COPD, CAD, Cancer, CVA, ARF, Chemo, Hep., AIDS, mental health diagnosis, sleep apnea, morbid obesity)? @ -None Was patient admitted / discharged? Hospital course, mention meds given and route, prescriptions, significant lab abnormalities, going to OR and other pertinent info. @37-year-old who is postoperative presenting for shortness of breath. Patient well-appearing resting comfortably no evidence of respiratory distress. Lungs are clear. No hypoxia. EKG shows normal sinus rhythm. Labs obtained and are relatively unremarkable. No leukocytosis. Viral and strep testing is negative. D-dimer is negative. I did obtain CT of the chest given recent surgery and immobilization which was interpreted by myself negative for pulmonary embolism and other acute process. CT of the abdomen and pelvis was interpreted by myself showing a functional right ovarian cyst. Patient does not have any abdominal pain in this region. Results discussed with patient. Vitals remained stable throughout visit. Patient is in stable medical condition or discharge. Return parameters discussed . Patient to follow up with primary care provider Undiagnosed new problem with uncertain prognosis? @ -No Drug Therapy requiring intensive monitoring for toxicity (Heparin, Nitro, Insulin, Cardizem)? @ -No Were any procedures done? @ -No Diagnosis/symptom? @ Shortness of breath Acute, or Chronic, or Acute on Chronic? @ -Acute Uncomplicated (without systemic symptoms) or Complicated (systemic symptoms)? @ -Uncomplicated Side effects of treatment? @ -No Exacerbation, Progression, or Severe Exacerbation? @ -No Poses a threat to life or bodily function? How? (Chest pain, [place], [place], pneumonia, PE, COPD, DKA, ARF, appy, cholecystitis, CVA, Diverticulitis, Homicidal, Suicidal, threat to staff... and all critical care pts) @ -No Dr. Alva is my attending - Lab Data Result diagrams: 02/23/23 16:37 02/23/23 16:37 Lab Results 02/23/23 02/23/23 02/23/23 Range/Units 16:37 16:37 16:37 WBC 8.2 (3.8-10.6) k/uL RBC 4.26 (3.80-5.40) m/uL Hgb 13.2 (11.4-16.0) gm/dL Hct 38.8 (34.0-46.0) % MCV 91.1 (80.0-100.0) fL MCH 30.9 (25.0-35.0) pg MCHC 34.0 (31.0-37.0) g/dL RDW 12.0 (11.5-15.5) % Plt Count 305 (150-450) k/uL MPV 7.6 Neutrophils % 73 % Lymphocytes % 19 % Monocytes % 5 % Eosinophils % 2 % Basophils % 0 % Neutrophils # 6.0 (1.3-7.7) k/uL Lymphocytes # 1.6 (1.0-4.8) k/uL Monocytes # 0.4 (0-1.0) k/uL Eosinophils # 0.1 (0-0.7) k/uL Basophils # 0.0 (0-0.2) k/uL PT 9.5 (9.0-12.0) sec INR 0.9 (<1.2) APTT 24.1 (22.0-30.0) sec D-Dimer 0.57 (<0.60) mg/L FEU Sodium (137-145) mmol/L Potassium (3.5-5.1) mmol/L Chloride (98-107) mmol/L Carbon Dioxide (22-30) mmol/L Anion Gap mmol/L BUN (7-17) mg/dL Creatinine (0.52-1.04) mg/dL Est GFR (CKD-EPI)AfAm (>60 ml/min/1.73 sqM) Est GFR (CKD-EPI)NonAf (>60 ml/min/1.73 sqM) Glucose (74-99) mg/dL Plasma Lactic Acid Manas (0.7-2.0) mmol/L Calcium (8.4-10.2) mg/dL Total Bilirubin (0.2-1.3) mg/dL AST (14-36) U/L ALT (4-34) U/L Alkaline Phosphatase (38-126) U/L Total Protein (6.3-8.2) g/dL Albumin (3.5-5.0) g/dL Urine Color Colorless Urine Appearance Clear (Clear) Urine pH 6.0 (5.0-8.0) Ur Specific [place] 1.014 (1.001-1.035) Urine Protein Negative (Negative) Urine Glucose (UA) Negative (Negative) Urine Ketones Negative (Negative) Urine Blood Trace H (Negative) Urine Nitrite Negative (Negative) Urine Bilirubin Negative (Negative) Urine Urobilinogen <2.0 (<2.0) mg/dL Ur Leukocyte Esterase Negative (Negative) Urine RBC 2 (0-5) /hpf Urine WBC <1 (0-5) /hpf Ur Squamous Epith Cells <1 (0-4) /hpf Urine Mucus Rare H (None) /hpf Urine HCG, Qual (Not Detectd) Influenza Type A (PCR) (Not Detectd) Influenza Type B (PCR) (Not Detectd) RSV (PCR) (Not Detectd) SARS-CoV-2 (PCR) (Not Detectd) Group A Strep (PCR) (Not Detectd) 02/23/23 02/23/23 02/23/23 Range/Units 16:37 16:37 16:37 WBC (3.8-10.6) k/uL RBC (3.80-5.40) m/uL Hgb (11.4-16.0) gm/dL Hct (34.0-46.0) % MCV (80.0-100.0) fL MCH (25.0-35.0) pg MCHC (31.0-37.0) g/dL RDW (11.5-15.5) % Plt Count (150-450) k/uL MPV Neutrophils % % Lymphocytes % % Monocytes % % Eosinophils % % Basophils % % Neutrophils # (1.3-7.7) k/uL Lymphocytes # (1.0-4.8) k/uL Monocytes # (0-1.0) k/uL Eosinophils # (0-0.7) k/uL Basophils # (0-0.2) k/uL PT (9.0-12.0) sec INR (<1.2) APTT (22.0-30.0) sec D-Dimer (<0.60) mg/L FEU Sodium 137 (137-145) mmol/L Potassium 4.1 (3.5-5.1) mmol/L Chloride 106 (98-107) mmol/L Carbon Dioxide 21 L (22-30) mmol/L Anion Gap 10 mmol/L BUN 14 (7-17) mg/dL Creatinine 0.67 (0.52-1.04) mg/dL Est GFR (CKD-EPI)AfAm >90 (>60 ml/min/1.73 sqM) Est GFR (CKD-EPI)NonAf >90 (>60 ml/min/1.73 sqM) Glucose 87 (74-99) mg/dL Plasma Lactic Acid Man[place] 0.5 L (0.7-2.0) mmol/L Calcium 10.0 (8.4-10.2) mg/dL Total Bilirubin 0.4 (0.2-1.3) mg/dL AST 30 (14-36) U/L ALT 55 H (4-34) U/L Alkaline Phosphatase 70 (38-126) U/L Total Protein 7.5 (6.3-8.2) g/dL Albumin 4.4 (3.5-5.0) g/dL Urine Color Urine Appearance (Clear) Urine pH (5.0-8.0) Ur Specific [place] (1.001-1.035) Urine Protein (Negative) Urine Glucose (UA) (Negative) Urine Ketones (Negative) Urine Blood (Negative) Urine Nitrite (Negative) Urine Bilirubin (Negative) Urine Urobilinogen (<2.0) mg/dL Ur Leukocyte Esterase (Negative) Urine RBC (0-5) /hpf Urine WBC (0-5) /hpf Ur Squamous Epith Cells (0-4) /hpf Urine Mucus (None) /hpf Urine HCG, Qual Not Detected (Not Detectd) Influenza Type A (PCR) (Not Detectd) Influenza Type B (PCR) (Not Detectd) RSV (PCR) (Not Detectd) SARS-CoV-2 (PCR) (Not Detectd) Group A Strep (PCR) (Not Detectd) 02/23/23 02/23/23 Range/Units 16:37 16:37 WBC (3.8-10.6) k/uL RBC (3.80-5.40) m/uL Hgb (11.4-16.0) gm/dL Hct (34.0-46.0) % MCV (80.0-100.0) fL MCH (25.0-35.0) pg MCHC (31.0-37.0) g/dL RDW (11.5-15.5) % Plt Count (150-450) k/uL MPV Neutrophils % % Lymphocytes % % Monocytes % % Eosinophils % % Basophils % % Neutrophils # (1.3-7.7) k/uL Lymphocytes # (1.0-4.8) k/uL Monocytes # (0-1.0) k/uL Eosinophils # (0-0.7) k/uL Basophils # (0-0.2) k/uL PT (9.0-12.0) sec INR (<1.2) APTT (22.0-30.0) sec D-Dimer (<0.60) mg/L FEU Sodium (137-145) mmol/L Potassium (3.5-5.1) mmol/L Chloride (98-107) mmol/L Carbon Dioxide (22-30) mmol/L Anion Gap mmol/L BUN (7-17) mg/dL Creatinine (0.52-1.04) mg/dL Est GFR (CKD-EPI)AfAm (>60 ml/min/1.73 sqM) Est GFR (CKD-EPI)NonAf (>60 ml/min/1.73 sqM) Glucose (74-99) mg/dL Plasma Lactic Acid Manas (0.7-2.0) mmol/L Calcium (8.4-10.2) mg/dL Total Bilirubin (0.2-1.3) mg/dL AST (14-36) U/L ALT (4-34) U/L Alkaline Phosphatase (38-126) U/L Total Protein (6.3-8.2) g/dL Albumin (3.5-5.0) g/dL Urine Color Urine Appearance (Clear) Urine pH (5.0-8.0) Ur Specific [place] (1.001-1.035) Urine Protein (Negative) Urine Glucose (UA) (Negative) Urine Ketones (Negative) Urine Blood (Negative) Urine Nitrite (Negative) Urine Bilirubin (Negative) Urine Urobilinogen (<2.0) mg/dL Ur Leukocyte Esterase (Negative) Urine RBC (0-5) /hpf Urine WBC (0-5) /hpf Ur Squamous Epith Cells (0-4) /hpf Urine Mucus (None) /hpf Urine HCG, Qual (Not Detectd) Influenza Type A (PCR) Not Detected (Not Detectd) Influenza Type B (PCR) Not Detected (Not Detectd) RSV (PCR) Not Detected (Not Detectd) SARS-CoV-2 (PCR) Not Detected (Not Detectd) Group A Strep (PCR) NOT DETECTED (Not Detectd) Disposition Clinical Impression: Shortness of breath Disposition: HOME SELF-CARE Condition: Good Instructions (If sedation given, give patient instructions): Shortness of Breath (ED) Additional Instructions: Please follow-up with your primary care provider in 1-2 days. Return to the emergency department if you experience new, concerning, or worsening symptoms. Is patient prescribed a controlled substance at d/c from ED?: No Referrals: Nani Huang MD [Primary Care Provider] - 1-2 days
[2023-02-23 19:57] VITALS: TEMP 98
== END 2023-02-23 19:58 | disposition home or self-care (01) ==
LOC: EC 15:59
DX: R06.02 Shortness of breath (principal); Z91.018 Allergy to other foods; Z91.048 Other nonmedicinal substance allergy status; Z88.8 Allergy status to other drugs, medicaments and biological substances; Z20.822 Contact with and (suspected) exposure to COVID-19
CPT/HCPCS: 36415; 93005; 87651; 85379; 80053; 83605; 85025; 85610; 85730; 81001; 81025; 87636; 71275; 74177; 99285; 96374; 96361 ×2; J1885; Q9967

== ENCOUNTER 2023-03-08 09:59 | Day surgery (SDC) | payer BC ==
[~2023-03-08 09:59] MED LIST: LACTATED RINGERS 1,000 ML IV SCH; LIDOCAINE 1% (10MG/ML) FOR IV START INTRADERMA PRN
[2023-03-08] MEDS ORDERED: PROPOFOL 10 MG/ML 20 ML VIAL IV ONE (11:00)
--- NOTE | 2023-03-08 11:14 | P.OP ---
Date of Procedure: 03/08/23 Preoperative Diagnosis: GERD Postoperative Diagnosis: Antral gastritis Large hiatal hernia Mild esophagitis Procedure(s) Performed: EGD Anesthesia: MAC Surgeon: Chris Shrestha Pathology: other (Antrum, esophagus) Condition: stable Disposition: PACU Description of Procedure: The patient's placed on the endoscopy table in the lateral position. She received IV sedation. The gastro-/oropharynx passed in the esophagus and the stomach. Scope was placed through the pylorus. The first and second portion of the duodenum appeared normal. Scope was then brought back the antrum was mildly inflamed. A biopsies performed. Scope was unretroflexed patient had a some moderate size hiatal hernia. The GE junction was at 37 cm per the distal esophagus appeared mildly inflamed and a biopsies performed. The proximal esophagus appeared normal. Scope was withdrawn for patient.
[2023-03-08 11:31] VITALS: RESP 16
[2023-03-08 11:56] VITALS: BP 94/51; PULSE 71
== END 2023-03-08 12:23 | disposition home or self-care (01) ==
LOC: ORWHC2ENDO 09:59
PROVIDERS: ATTEND Surgery
DX: K29.50 Unspecified chronic gastritis without bleeding (principal); K21.00 Gastro-esophageal reflux disease with esophagitis, without bleeding; K44.9 Diaphragmatic hernia without obstruction or gangrene; K80.10 Calculus of gallbladder with chronic cholecystitis without obstruction; G43.909 Migraine, unspecified, not intractable, without status migrainosus; Z79.899 Other long term (current) drug therapy; Z90.49 Acquired absence of other specified parts of digestive tract
CPT/HCPCS: 81025; 88305; 43239; J2704

== ENCOUNTER 2023-04-06 06:58 | Inpatient (IN) | payer BC ==
[2023-04-03 10:21] VITALS: BMI 24.2
[~2023-04-06 06:58] MED LIST changes: +ACETAMINOPHEN TAB 500 MG TAB PO PRN; +DEXAMETHASONE SOD PHOSPHATE 4 MG/ML 1 ML VIAL IV ONE; +HEPARIN SODIUM,PORCINE/PF 5,000 UNIT/0.5 ML SYRINGE SQ PRN; -LIDOCAINE 1% (10MG/ML) FOR IV START INTRADERMA PRN; +ONDANSETRON 4 MG/2 ML VIAL IVP ONE; +SCOPOLAMINE 1 MG/72 HR PATCH TRANSDERM ONE
[2023-04-06] MEDS ORDERED: MIDAZOLAM 2 MG/2 ML VIAL IV PRN (07:00)
[2023-04-06] MEDS ORDERED: HYDROmorphone 1 MG/ML 1 ML SYRINGE IVP PRN (08:13)
[2023-04-06] MEDS ORDERED: LACTATED RINGERS 1,000 ML IV ONE ×2 (08:13→09:26)
[2023-04-06] MEDS ORDERED: HYDROmorphone 0.5 MG/0.5 ML SYRINGE IVP PRN (08:13)
[2023-04-06] MEDS ORDERED: NALOXONE 0.4 MG/ML 1 ML VIAL IV PRN (08:13)
[2023-04-06] MEDS ORDERED: ONDANSETRON 4 MG/2 ML VIAL IVP PRN (08:13)
[2023-04-06] MEDS ORDERED: DEXAMETHASONE SOD PHOSPHATE 4 MG/ML 1 ML VIAL IVP PRN (08:15)
[2023-04-06] MEDS ORDERED: GLYCOPYRROLATE 0.2 MG/ML 2 ML VIAL ONE (08:40)
[2023-04-06] MEDS ORDERED: NEOSTIGMINE 1 MG/ML 10 ML VIAL ONE (08:40)
[2023-04-06] MEDS ORDERED: diphenhydrAMINE 50 MG/ML 1 ML VIAL ONE (08:40)
[2023-04-06] MEDS ORDERED: ROCURONIUM 10 MG/ML (5 ML VIAL) IV ONE (08:40)
[2023-04-06] MEDS ORDERED: fentaNYL (PF) 50 MCG/ML 2 ML AMP ONE (08:40)
[2023-04-06] MEDS ORDERED: PROPOFOL 10 MG/ML 20 ML VIAL IV ONE (08:40)
[2023-04-06] MEDS ORDERED: KETOROLAC 30 MG/ML 1 ML VIAL ONE (08:40)
[2023-04-06] MEDS ORDERED: LIDOCAINE 1% INJ 10MG/ML (20 ML MDV) ONE (08:40)
[2023-04-06] MEDS ORDERED: SUCCINYLCHOLINE CHLORIDE 200 MG/10 ML VIAL IV ONE (08:40)
[2023-04-06] MEDS ORDERED: BUPIVACAINE (PF) 0.25% 30 ML VIAL SQ ONE (09:05)
--- NOTE | 2023-04-06 09:55 | P.OP ---
Date of Procedure: 04/06/23 Preoperative Diagnosis: GERD Postoperative Diagnosis: GERD Hiatal hernia Procedure(s) Performed: Laparoscopic Tj fundoplication Anesthesia: TARI Surgeon: Chris Shrestha Estimated Blood Loss (ml): 5 Pathology: none sent Condition: stable Disposition: PACU Description of Procedure: The patient was placed on the operating table in the supine position. The patient received general anesthesia. And was placed in dorsal lithotomy position. The patient was prepped and draped in the usual sterile fashion. The skin incision sites were anesthetized with 1% local Xylocaine. The skin was incised in the left periumbilical area and then using a blade less 5 mm trocar under direct visualization panel cavity was entered. After adequate insufflation the laparoscope was then placed into the peritoneal cavity. Next a 5 mm trochars placed in the right epigastric position. Another 5 millimeter trocar the right lateral position. Another 5 millimeter trocar in the left lateral position a 5 mm trocar is placed in the left epigastric position. And then the initial 5 mm trocar was exchanged for a 10 mm trocar. The left lateral lobe liver was retracted. The hernia was seen. The crural defect was then dissected using the Harmonic scissors device. A 360 crural dissection was performed the esophagus stomach was reduced back into the peritoneal Cavity. The crural defect was then closed using 2-0 Ethibond suture. Next the fundus of the stomach was mobilized using the [place] scissors device. and then a 58- [place] Islander bougie dilator was placed oropharynx passed into the esophagus and stomach the fundal plication wrap was then performed by grasping the fundus post eriorly and bringing it around the esophagus and stomach fundoplication was then performed using 2-0 Ethibond suture. Care was taken that the fundal location rested over top of the intra-abdominal esophagus. There was no injury seen to the stomach or esophagus. The dilator was then withdrawn. The abdomen was irrigated there is no bleeding seen. The trochars were then withdrawn and then skin incision sites were closed using 3-0 Monocryl suture Steri-Strips are applied. Patient thought procedure well and sent to recovery room in stable condition.
[2023-04-06] MEDS: HYDROmorphone 0.5 MG/0.5 ML SYRINGE IVP PRN ×3 (09:58→10:29)
[2023-04-06] MEDS: SIMETHICONE 40 MG/0.6 ML DROPS 2,000 MG/30 ML BOTTLE PO SCH ×3 (12:19→21:11)
[2023-04-06] MEDS: KETOROLAC 15 MG/ML 1 ML VIAL IVP SCH ×2 (15:05→17:47)
[2023-04-06] MEDS ORDERED: PROCHLORPERAZINE INJ 10 MG/2 ML VIAL IVP PRN (15:09)
[2023-04-06] MEDS ORDERED: SUMATRIPTAN 5 MG EA NOSTRIL PRN (16:01)
[2023-04-06] MEDS ORDERED: NON FORMULARY DRUG (Azelastine/Fluticasone [Azelastin-Flutic 137-50mcg Spr] 23 GM Each) EA NOSTRIL PRN (16:01)
--- NOTE | 2023-04-07 00:46 | P.CONS ---
History of Present Illness - Reason for Consult Consult date: 04/06/23 Medical management - Chief Complaint Status post Tj fundoplication - History of Present Illness Patient is a 37-year-old female with a known history of GERD,, cluster headaches, bipolar disorder and PTSD was admitted to the hospital for Tj fundoplication. Patient is status post laparoscopic surgery today. Patient otherwise denies any chest pain or shortness of breath. Does have nausea. No cough or sputum production. No complaints of abdominal pain. No fever no chills. Denies any recent illnesses. Upon coming to the floor patient started complaining of cluster headaches. Nadira ent was also tachycardic with heart rate 114. Afebrile. She was placed on 100% nonrebreather for about 15 minutes. She was also given sumatriptan nasal spray. Laboratory data is not available at this time. Review of Systems Constitutional: Patient denies any fever or chills . no Generalized weakness. Abdomen: Patient does complain of nausea. No episodes of vomiting or abd. pain Cardiovascular: Patient denies any chest pain or short of breath no palpitations. Respiratory: patient denied any cough . no sputum production. No shortness of breath Neurologic: Patient denied any numbness or tingling. Patient does have headache. Musculoskeletal: Patient denies any complaints of joint swelling or deformity. Skin: Negative Psychiatric: Negative Endocrine: No heat or cold intolerance. No recent weight gain. Genitourinary: No dysuria or hematuria. All other 14 point ROS negative except the above Past Medical History Past Medical History: GERD/Reflux Additional Past Medical History / Comment(s): hiatal hernia with chest discomfort,cluster headaches History of Any Multi-Drug Resistant Organisms: None Reported Past Surgical History: Cholecystectomy Additional Past Surgical History / Comment(s): invetro fertilization Past Anesthesia/Blood Transfusion Reactions: No Reported Reaction, Motion Sickness Additional Past Anesthesia/Blood Transfusion Reaction / Comm: no hx blood transfusion Past Psychological History: Bipolar, PTSD Smoking Status: Never smoker Past Alcohol Use History: None Reported Past Drug Use History: None Reported - Past Family History Father Family Medical History: No Reported History Mother Family Medical History: No Reported History Medications and Allergies Home Medications Medication Instructions Recorded Confirmed Type Famotidine [Pepcid] 20 mg PO BID PRN 02/18/23 04/03/23 History Azelastine/Fluticasone 1 spray EA NOSTRIL DAILY PRN 04/03/23 04/06/23 History [Azelastin-Flutic 137-50Mcg Spr] Calcium Carbonate [Tums] 500 mg PO QID PRN 04/03/23 04/06/23 History Dayquil 1 dose PO DAILY PRN 04/03/23 04/06/23 History Promethazine [Phenergan] 25 mg PO Q6HR PRN 04/03/23 04/06/23 History SUMAtriptan [SUMAtriptan Nasal 1 spray NASAL DAILY PRN 04/03/23 04/06/23 History [place]] Acetaminophen Tab [Tylenol] 650 mg PO Q6H #30 tab 04/06/23 Rx Docusate [Colace] 100 mg PO BID #20 capsule 04/06/23 Rx Ibuprofen [Motrin] 600 mg PO Q6HR PRN #40 tab 04/06/23 Rx oxyCODONE HCL [OxyIR] 5 mg PO Q6H PRN 3 Days #10 tab 04/06/23 Rx Allergies Allergy/AdvReac Type Severity Reaction Status Date / Time banana Allergy Anaphylaxis Verified 04/06/23 07:11 [place] And Derivatives Allergy Anaphylaxis Verified 04/06/23 07:11 tree nut [Nut] Allergy Anaphylaxis Verified 04/06/23 07:11 Physical Exam Vitals: Vital Signs Temp Pulse Resp BP Pulse Ox 04/06/23 15:05 97.5 F L 78 15 115/80 99 04/06/23 14:30 82 12 116/60 96 04/06/23 13:30 79 12 119/63 95 04/06/23 12:30 82 12 116/72 95 04/06/23 12:00 84 12 119/72 95 04/06/23 11:30 91 12 118/75 95 04/06/23 11:00 64 12 130/71 99 04/06/23 10:45 80 12 135/75 99 04/06/23 10:30 78 12 136/69 99 04/06/23 10:15 69 12 128/70 100 04/06/23 10:00 64 12 119/71 100 04/06/23 09:50 97.4 F L 70 12 123/68 98 04/06/23 07:19 96.9 F L 77 16 117/74 97 Intake and Output 11/08/2404/06/23 04/06/23 06:59 14:59 22:59 Intake Total 2049 Output Total 5 Balance 2044 Intake: IV 2049 Output: Estimated Blood Loss 5 Other: Weight 65.6 kg PHYSICAL EXAMINATION: Patient is lying in the bed comfortably, no acute distress, awake alert and oriented. Anxious.. HEENT: Normocephalic. Neck is supple. Pupils reactive. Nostrils clear. Oral cavity is moist. Neck reveals no JVD, carotid bruits, or thyromegaly. CHEST EXAMINATION: Trachea is central. Symmetrical expansion. Lung ling clear to auscultation and percussion. CARDIAC: Normal S1, S2 with no gallops. No murmurs ABDOMEN: Soft. Bowel sounds present. Nontender. No organomegaly. No abdominal bruits. Extremities: reveal no edema. No clubbing or cyanosis Neurologically awake, alert, oriented x3 with well-coordinated movements. No focal deficits noted Skin: No rash or skin lesions. Psychiatric: Coperative. Nonsuicidal, patient is anxious Musculoskeletal: No joint swelling or deformity. Normal range of motion. Assessment and Plan Assessment: Status post Tj fundoplication surgery. Postoperative day 0 Severe GERD symptoms Cluster headache acute episode. Prior history of cholecystectomy Bipolar disorder and PTSD DVT prophylaxis patient is on Lovenox subcu Plan: Patient will be continued on IV hydration. Started on liquid diet. Continued on pain management. Patient was placed on 100% nonrebreather due to acute episode of cluster headache and also given sumatriptan nasal spray which she takes at home. Continue to follow closely. Follow-up CBC and BMP tomorrow. Encourage ambulation and incentive spirometry. Time with Patient: Greater than 30
[2023-04-07] MEDS: KETOROLAC 15 MG/ML 1 ML VIAL IVP SCH ×3 (01:18→11:45)
[2023-04-07] MEDS: SIMETHICONE 40 MG/0.6 ML DROPS 2,000 MG/30 ML BOTTLE PO SCH ×2 (07:59→11:49)
[2023-04-07] MEDS: ACETAMINOPHEN TAB 325 MG TAB PO PRN ×2 (08:06→13:30)
[2023-04-07 08:13] LABS: Basophils % (A) 0 %; Eosinophils % (A) 1 %; HCT 34.2 % (34.0-46.0); HGB 11.8 gm/dL (11.4-16.0); Lymphocytes # (A) 2.2 k/uL (1.0-4.8); Lymphocytes % (A) 31 %; MCH 31.7 pg (25.0-35.0); MCHC 34.5 g/dL (31.0-37.0); Mean Platelet Volume 8.2; Monocytes # (A) 0.5 k/uL (0-1.0); Monocytes % (A) 7 %; Neutrophils # (A) 4.3 k/uL (1.3-7.7); Neutrophils % (A) 61 %; Platelet Count 226 k/uL (150-450); RBC 3.72 m/uL (3.80-5.40); RDW 12.7 % (11.5-15.5); WBC 7.1 k/uL (3.8-10.6)
[2023-04-07 08:32] LABS: African American GFR (CKD) >90 (>60 ml/min/1.73 sqM); Anion Gap 9 mmol/L; Blood Urea Nitrogen 9 mg/dL (7-17); Calcium 8.8 mg/dL (8.4-10.2); Carbon Dioxide 22 mmol/L (22-30); Chloride 106 mmol/L (98-107); Glucose 75 mg/dL (74-99); Non-African American GFR(CKD) >90 (>60 ml/min/1.73 sqM); Potassium 4.1 mmol/L (3.5-5.1); Sodium 137 mmol/L (137-145)
[2023-04-07] MEDS ORDERED: ENOXAPARIN 40 MG/0.4 ML SYRINGE SQ SCH (09:00)
--- NOTE | 2023-04-07 10:15 | P.PN ---
Subjective Progress Note Date: 04/07/23 (Surgery) Postop day 1 from Tj fundoplication. Doing well. Tolerating diet. Abdominal exam is as expected. Incision sites look fine. Plan: Does not seem to be ready to go home the morning. However if continues improving and has no nausea vomiting and tolerates liquids, she could potentially go home. Objective - Vital Signs Vital signs: Vital Signs Temp 98.5 F 04/07/23 07:34 Pulse 90 04/07/23 07:34 Resp 16 04/07/23 10:09 BP 108/72 04/07/23 07:34 Pulse Ox 97 04/07/23 07:34 FiO2 Intake & Output 04/06/23 04/07/23 04/07/23 18:59 06:59 18:59 Intake Total 2049 Output Total Balance 2044 Weight 65.6 kg Intake: IV 2049 Output: Estimated Blood Loss 5 Other: Voiding Method Toilet Toilet # Voids 1 1 - Labs CBC & Chem 7: 04/07/23 06:47 04/07/23 06:47 Labs: Abnormal Lab Results - Last 24 Hours (Table) 04/07/23 Range/Units 06:47 RBC 3.72 L (3.80-5.40) m/uL
[2023-04-07 15:03] VITALS: BP 110/70; PULSE 74; RESP 17; TEMP 98
== END 2023-04-07 17:28 | disposition home or self-care (01) | DRG 328 ==
LOC: 2ORMAIN 06:58 → 4SSUR 14:37
PROVIDERS: ADMIT Surgery; ATTEND Surgery
PROC: 0DV44ZZ Restriction of Esophagogastric Junction, Percutaneous Endoscopic Approach (ICD-10-PCS; principal; 2023-04-06 08:20)
DX: K44.9 Diaphragmatic hernia without obstruction or gangrene (principal); F43.10 Post-traumatic stress disorder, unspecified; G44.009 Cluster headache syndrome, unspecified, not intractable; K21.9 Gastro-esophageal reflux disease without esophagitis; F31.9 Bipolar disorder, unspecified; Z90.49 Acquired absence of other specified parts of digestive tract; Z79.01 Long term (current) use of anticoagulants; Z88.8 Allergy status to other drugs, medicaments and biological substances
CPT/HCPCS: 80048; 81025; 85025

== ENCOUNTER 2023-04-13 13:57 | Emergency (ER) | payer BC ==
[2023-04-13 14:04] VITALS: RESP 16
--- NOTE | 2023-04-13 14:29 | ED ---
General Adult HPI - General Chief complaint: Animal Bite Stated complaint: Poss Bat Bite Time Seen by Provider: 04/13/23 14:03 Source: patient, RN notes reviewed Mode of arrival: ambulatory Limitations: no limitations - History of Present Illness Initial comments: 37-year-old female with no significant past medical history presents to the emergency department with a chief complaint possible rabies exposure. Patient reports that she has noticed ultrasound by the window last night. She reports that she saw about 5 posture bedroom morning. She also noticed threat droppings in her living room. She denies any known animal bite at this time. Denies any constitutional symptoms. - Related Data Home Medications Medication Instructions Recorded Confirmed Famotidine [Pepcid] 20 mg PO BID PRN 02/18/23 04/03/23 Azelastine/Fluticasone 1 spray EA NOSTRIL DAILY PRN 04/03/23 04/06/23 [Azelastin-Flutic 137-50Mcg Spr] Calcium Carbonate [Tums] 500 mg PO QID PRN 04/03/23 04/06/23 Dayquil 1 dose PO DAILY PRN 04/03/23 04/06/23 Promethazine [Phenergan] 25 mg PO Q6HR PRN 04/03/23 04/06/23 SUMAtriptan [SUMAtriptan Nasal 1 spray NASAL DAILY PRN 04/03/23 04/06/23 [place]] Previous Rx's Medication Instructions Recorded Acetaminophen Tab [Tylenol] 650 mg PO Q6H #30 tab 04/06/23 Docusate [Colace] 100 mg PO BID #20 capsule 04/06/23 Ibuprofen [Motrin] 600 mg PO Q6HR PRN #40 tab 04/06/23 oxyCODONE HCL [OxyIR] 5 mg PO Q6H PRN 3 Days #10 tab 04/06/23 Allergies Allergy/AdvReac Type Severity Reaction Status Date / Time banana Allergy Anaphylaxis Verified 04/13/23 13:59 [place] And Derivatives Allergy Anaphylaxis Verified 04/13/23 13:59 tree nut [Nut] Allergy Anaphylaxis Verified 04/13/23 13:59 Review of Systems ROS Statement: Those systems with pertinent positive or pertinent negative responses have been documented in the HPI. ROS Other: All systems not noted in ROS Statement are negative. Past Medical History Past Medical History: GERD/Reflux Additional Past Medical History / Comment(s): hiatal hernia with chest discomfort,cluster headaches History of Any Multi-Drug Resistant Organisms: None Reported Past Surgical History: Cholecystectomy Additional Past Surgical History / Comment(s): invetro fertilization Past Anesthesia/Blood Transfusion Reactions: No Reported Reaction, Motion Sickness Additional Past Anesthesia/Blood Transfusion Reaction / Comment(s): no hx blood transfusion Past Psychological History: Bipolar, PTSD Smoking Status: Never smoker Past Alcohol Use History: None Reported Past Drug Use History: None Reported - Past Family History Father Family Medical History: No Reported History Mother Family Medical History: No Reported History General Exam - General Exam Comments Initial Comments: General: Alert, in no acute distress Head: atraumatic normocephalic. Eyes PERRL, EOMI intact, mucous membranes moist Respiratory: Lungs clear to auscultation bilaterally Cardiovascular: Heart rate regular rate and rhythm Abdominal: Soft without guarding or rebound, surgical scars appear well healed Extremities: Normal inspection with full range of motion and normal capillary refill Neuroogic: alert and oriented 3, CN II-XII intact, able to ambulate with steady gait Skin: warm dry and intact with normal color Limitations: no limitations Course Vital Signs 04/13/23 04/13/23 13:59 15:25 Temperature 97.7 F 98 F Pulse Rate 76 72 Respiratory 16 16 Rate Blood Pressure 122/80 120/80 O2 Sat by Pulse 98 98 Oximetry Medical Decision Making - Medical Decision Making Was pt. sent in by a medical professional or institution (Dr. PA, MILL OPERATOR, urgent care, hospital, or alf...) When possible be specific @ -[No] Did you speak to anyone other than the patient for history (EMS, parent, family, police, friend...)? What history was obtained from this source @ -[No] Did you review nursing and triage notes (agree or disagree)? Why? @ -[I reviewed and agree with nursing and triage notes] Were old charts reviewed (outside hosp., previous admission, EMS record, old EKG, old radiological studies, urgent care reports/EKG's, alf records)? Report findings @ -[No old charts were reviewed] Differential Diagnosis (chest pain, altered mental status, abdominal pain women, abdominal pain men, vaginal bleeding, weakness, fever, dyspnea, syncope, headache, dizziness, GI bleed, back pain, seizure, CVA, palpatations, mental health, musculoskeletal)? @ -[not applicable] EKG interpreted by me (3pts min.). @ -[As above] X-rays interpreted by me (1pt min.). @ -[None done] CT interpreted by me (1pt min.). @ -[None done] U/S interpreted by me (1pt. min.). @ -[None done] What testing was considered but not performed or refused? (CT, X-rays, U/S, labs)? Why? @ -[None] What meds were considered but not given or refused? Why? @ -[None] Did you discuss the management of the patient with other professionals (professionals i.e. , PA, MILL OPERATOR, lab, RT, psych nurse, psychologist social, head of marketing, teacher, chief wellness officer, case repairer)? Give summary @ -[No] Was smoking cessation discussed for >3mins.? @ -[No] Was critical care preformed (if so, how long)? @ -[No] Were there social determinants of health that impacted care today? How? (Homelessness, low income, unemployed, alcoholism, drug addiction, transportation, low edu. Level, literacy, decrease access to med. care, retirement, rehab)? @ -[No] Was there de-escalation of care discussed even if they declined (Discuss DNR or withdrawal of care, Hospice)? DNR status @ -[No] What co-morbidities impacted this encounter? (DM, HTN, Smoking, COPD, CAD, Cancer, CVA, ARF, Chemo, Hep., AIDS, mental health diagnosis, sleep apnea, morbid obesity)? @ -[None] Was patient admitted / discharged? Hospital course, mention meds given and route, prescriptions, significant lab abnormalities, going to OR and other pertinent info. @ -Discharged. This is a 37-year-old female who presents the emergency department with possible rabies exposure. Patient had a thorough history and physical exam performed. Physical exam unremarkable. Heart rate regular rate and rhythm, lungs clear to auscultation, abdomen soft and nontender. No obvious animal bite aquino. Patient was provided rabies immunoglobulin and rabies vaccine. Provided prescription for repeat vaccine doses. Discharged in stable condition. Return precautions discussed at length. Case discussed with SARA Helm who agrees with plan of care Undiagnosed new problem with uncertain prognosis? @ -[No] Drug Therapy requiring intensive monitoring for toxicity (Heparin, Nitro, Insulin, Cardizem)? @ -[No] Were any procedures done? @ -[No] Diagnosis/symptom? @ -Encounter for Rabies Vaccine - Encounter for Rabies Immunoglobulin Acute, or Chronic, or Acute on Chronic? @ -Acute Uncomplicated (without systemic symptoms) or Complicated (systemic symptoms)? @ -Uncomplicated Side effects of treatment? @ -[No] Exacerbation, Progression, or Severe Exacerbation? @ -[No] Poses a threat to life or bodily function? How? (Chest pain, [place], [place], pneumonia, PE, COPD, DKA, ARF, appy, cholecystitis, CVA, Diverticulitis, Homicidal, Suicidal, threat to staff... and all critical care pts) @ -Low likelihood Disposition Clinical Impression: Encounter for administration of vaccine Disposition: HOME SELF-CARE Condition: Stable Instructions (If sedation given, give patient instructions): Rabies Vaccine (By injection), Rabies Immune Globulin (By injection), Animal Bite (ED), Rabies (ED) Additional Instructions: Please return to the hospital on day 3, day 7, day 14 for serial rabies vaccines. Is patient prescribed a controlled substance at d/c from ED?: No Referrals: Nani Huang MD [Primary Care Provider] - 1-2 days Time of Disposition: 14:28
[2023-04-13] MEDS ORDERED: RABIES VACCINE (PCEC) 2.5 UNIT KIT IM ONE (15:00)
[2023-04-13] MEDS ORDERED: RABIES IMM GLOB 300 UNIT/2 ML VIAL IM ONE (15:00)
[2023-04-13 15:38] VITALS: BP 120/80; PULSE 72; TEMP 98
== END 2023-04-13 15:28 | disposition home or self-care (01) ==
LOC: EC 13:57
DX: Z20.3 Contact with and (suspected) exposure to rabies (principal); Z23 Encounter for immunization; F31.9 Bipolar disorder, unspecified; Z91.018 Allergy to other foods; Z88.8 Allergy status to other drugs, medicaments and biological substances; Z79.899 Other long term (current) drug therapy
CPT/HCPCS: 90377; 90471; 90675; 96372; 99283

== ENCOUNTER → 2023-09-13 | Outpatient (CLI) | payer BC | END | disposition home or self-care (01) | LOC: LABWHC1 12:38 | PROVIDERS: ATTEND Obstetrics & Gynecology Reproductive Endocrinology | DX: Z31.69 Encounter for other general counseling and advice on procreation (principal) | CPT/HCPCS: 36415; 82670 ==

== ENCOUNTER → 2023-11-16 | Outpatient (CLI) | payer BC ==
[2023-11-17 03:42] LABS: Basophils # (A) 0.02 X 10*3/uL (0.00-0.10); Basophils % (A) 0.4 %; Eosinophils % (A) 1.9 %; HCT 37.2 % (37.2-46.3); HGB 12.1 g/dL (12.0-15.0); Lymphocytes # (A) 1.55 X 10*3/uL (0.90-5.00); Lymphocytes % (A) 28.9 %; MCH 29.5 pg (27.0-32.0); MCHC 32.5 g/dL (32.0-37.0); MCV 90.7 FL (80.0-97.0); Mean Platelet Volume 10.6 FL (9.5-12.2); Monocytes % (A) 9.3 %; NRBC Per 100 WBC 0 X 10*3/uL (0.00-0.01); Neutrophils # (A) 3.19 X 10*3/uL (1.80-7.70); Neutrophils % (A) 59.3 %; Platelet Count 331 X 10*3/uL (140-440); RDW 13.2 % (11.5-14.5); WBC 5.37 X 10*3/uL (4.50-10.00)
== END | disposition home or self-care (01) ==
LOC: LABPAT 16:00
PROVIDERS: ATTEND Obstetrics & Gynecology
DX: Z01.812 Encounter for preprocedural laboratory examination (principal); O02.1 Missed abortion
CPT/HCPCS: 84702; 85025; 86850; 86900; 86901

== ENCOUNTER → 2023-11-27 | Outpatient (CLI) | payer BC ==
[2023-11-27 18:25] LABS: Basophils # (A) 0.02 X 10*3/uL (0.00-0.10); Basophils % (A) 0.3 %; Eosinophils # (A) 0.08 X 10*3/uL (0.04-0.35); Eosinophils % (A) 1.1 %; HCT 35.6 % (37.2-46.3); HGB 10.9 g/dL (12.0-15.0); Lymphocytes # (A) 1.72 X 10*3/uL (0.90-5.00); Lymphocytes % (A) 22.9 %; MCH 28.4 pg (27.0-32.0); MCHC 30.6 g/dL (32.0-37.0); MCV 92.7 FL (80.0-97.0); Mean Platelet Volume 10.4 FL (9.5-12.2); NRBC Per 100 WBC 0 X 10*3/uL (0.00-0.01); Neutrophils # (A) 5.08 X 10*3/uL (1.80-7.70); Neutrophils % (A) 67.6 %; Platelet Count 369 X 10*3/uL (140-440); RBC 3.84 X 10*6/uL (4.10-5.20); RDW 12.9 % (11.5-14.5); WBC 7.51 X 10*3/uL (4.50-10.00)
== END | disposition home or self-care (01) ==
LOC: LABPAT 15:17
PROVIDERS: ATTEND Obstetrics & Gynecology
DX: Z01.812 Encounter for preprocedural laboratory examination (principal); D73.1 Hypersplenism
CPT/HCPCS: 85025; 86850; 86900; 86901

== ENCOUNTER 2023-11-28 11:15 | Day surgery (SDC) | payer BC ==
[2023-11-27 11:16] VITALS: BMI 20.8
[~2023-11-28 11:15] MED LIST changes: -ACETAMINOPHEN TAB 500 MG TAB PO PRN; -DEXAMETHASONE SOD PHOSPHATE 4 MG/ML 1 ML VIAL IV ONE; -HEPARIN SODIUM,PORCINE/PF 5,000 UNIT/0.5 ML SYRINGE SQ PRN; +HYDROmorphone 0.5 MG/0.5 ML SYRINGE IVP PRN; -LACTATED RINGERS 1,000 ML IV SCH; +LIDOCAINE 1% (10MG/ML) FOR IV START INTRADERMA PRN; +Pre Op ABX Message 1 EACH MISC MISCELLANE ONE; +droPERidol 5 MG/2 ML VIAL IVP ONE
[2023-11-28] MEDS: IV FLUID CONTINUATION 1,000 ML IV ONE (11:29)
[2023-11-28 11:51] VITALS: TEMP 97.4
[2023-11-28] MEDS: LACTATED RINGERS 1,000 ML IV SCH (11:59)
[2023-11-28] MEDS: DEXAMETHASONE SOD PHOSPHATE 4 MG/ML 1 ML VIAL IV ONE (12:04)
[2023-11-28] MEDS: diphenhydrAMINE 50 MG/ML 1 ML VIAL IVP STA (12:11)
[2023-11-28] MEDS ORDERED: LIDOCAINE 1% INJ 10MG/ML (20 ML MDV) ONE (12:28)
[2023-11-28] MEDS ORDERED: PROPOFOL 10 MG/ML 20 ML VIAL IV ONE (12:28)
[2023-11-28] MEDS ORDERED: KETOROLAC 15 MG/ML 1 ML VIAL ONE (12:28)
[2023-11-28] MEDS ORDERED: fentaNYL (PF) 50 MCG/ML 2 ML AMP ONE (12:28)
[2023-11-28] MEDS ORDERED: MIDAZOLAM 2 MG/2 ML VIAL ONE (12:28)
--- NOTE | 2023-11-28 12:54 | P.OP ---
Date of Procedure: 11/28/23 Preoperative Diagnosis: Missed at 7 weeks gestation Postoperative Diagnosis: Same Procedure(s) Performed: Suction D&C Implants: None Anesthesia: TARI Surgeon: Khadra Estrella Estimated Blood Loss (ml): 50 IV fluids (ml): 300 Urine output (ml): 25 Pathology: other (products of conception) Condition: stable Disposition: same day Indications for Procedure: Ms. Alvarado is a 38 year old with a 7 week missed who presents for suction D&C today. Risks, benefits, and alternatives to surgery are discussed with the patient including risk of bleeding, infection, uterine perforation, and damage to surrounding structures. The patient understands these risks and desires to proceed with surgery as discussed. Operative Findings: Moderate amount of products of conception Description of Procedure: The patient was taken to the operating room where a general anesthetic was administered. She was then positioned in the dorsal lithotomy position and prepped and draped in the normal sterile fashion. Once the anesthetic was found to be adequate, a bimanual exam was performed under anesthetic. Next, a weighted speculum was placed in the vagina. The anterior lip of cervix was grasped with the tenaculum and was sequentially dilated with Umair dilators to accommodate the 8mm suction curette. An 8mm suction curette was connected to the suction and was placed in the cervix and a suction curettage was performed. Two passes were made with the suction curettage. Next, a sharp curettage was performed obtaining a small amount of tissue and this was followed by third suction curettage. After the procedure, the tenaculum was removed. The cervix was hemostatic. The weighted speculum was removed. After the procedure, a second bimanual exam was performed and the patient's uterus had significantly decreased in size.The patient was taken from the operating room in stable condition after she was cleaned. The patient receive a dose of Toradol post-operatively for pain control. She will be discharged home today and will follow up in the office in 2 weeks. The patient is Rh positive.
[2023-11-28 13:18] VITALS: RESP 16
[2023-11-28 14:14] VITALS: BP 111/71; PULSE 69
== END 2023-11-28 14:14 | disposition home or self-care (01) ==
LOC: OR 11:15
PROVIDERS: ATTEND Obstetrics & Gynecology
DX: O02.1 Missed abortion (principal); Z90.49 Acquired absence of other specified parts of digestive tract; Z98.890 Other specified postprocedural states
CPT/HCPCS: 88305; 59820; J2250; J1200; J1100; J2001; J3010; J1885; J2704

== ENCOUNTER 2024-05-26 06:15 | Inpatient (IN) | payer BC ==
--- NOTE | 2024-05-26 08:55 | P.HPOB ---
History of Present Illness H&P Date: 05/26/24 Chief Complaint: 15 week missed Ms. Alvarado is a 39 year old at approximately 15 weeks gestation with a missed . The fetus was affected by likely Trimsomy 21 according to NIPT testing (amniocentesis was not yet done). Patient was referred to [facility] and was found to have a cystic hygroma with worsening hydrops which ultimately lead to demise. She presents today for induction of labor for missed . Of note, she does have migraines and headaches for which she requests IV promethazine and sumatriptan spray prn. Obstetric history: 1 FTVD, 1 SAB managed with suction D&C Past Medical History Past Medical History: GERD/Reflux Additional Past Medical History / Comment(s): Cluster headaches, costrocondritis, lung damage from living in [place]. Allergies. History of Any Multi-Drug Resistant Organisms: None Reported Past Surgical History: Cholecystectomy, Hernia Repair Additional Past Surgical History / Comment(s): Invitro fertilization, dental procedures. Past Anesthesia/Blood Transfusion Reactions: No Reported Reaction, Motion Sickness Additional Past Anesthesia/Blood Transfusion Reaction / Comment(s): No hx blood transfusion. Smoking Status: Never smoker - Past Family History Father Family Medical History: Cancer Additional Family Medical History / Comment(s): Skin cancer. Mother Family Medical History: No Reported History Medications and Allergies Home Medications Medication Instructions Recorded Confirmed Type Azelastine/Fluticasone 1 spray EA NOSTRIL DAILY PRN 04/03/23 11/28/23 History [Azelastin-Flutic 137-50Mcg Spr] Promethazine [Phenergan] 25 mg PO Q6HR PRN 04/03/23 11/28/23 History SUMAtriptan [Imitrex Nasal [place]] 1 spray NASAL DAILY PRN 04/03/23 11/28/23 History Allergies Allergy/AdvReac Type Severity Reaction Status Date / Time banana Allergy Anaphylaxis Verified 11/28/23 11:48 [place] And Derivatives Allergy Anaphylaxis Verified 11/28/23 11:48 tree nut [Nut] Allergy Anaphylaxis Verified 11/28/23 11:48 fruit flavorings Allergy Anaphylaxis Uncoded 11/27/23 10:55 Exam Intake and Output 05/25/24 05/26/24 05/26/24 22:59 06:59 14:59 Other: Weight 61.235 kg Focused physical exam is performed. This is a healthy-appearing in no apparent distress. Breathing is non-labored. Abdomen is gravid and non-tender. 400mcg Misoprotsol is placed vaginally. Extremities non-tender and non- edematous. Assessment and Plan Assessment: 39 year old at 15 weeks gestation with missed presenting for medical induction of labor Plan: Admit, clear liquid diet, Misoprostol 400mcg q4 hours, epidural prn. Anticipate vaginal delivery.
[2024-05-26] MEDS ORDERED: PROMETHAZINE 25 MG TAB PO PRN (08:58)
[2024-05-26] MEDS ORDERED: miSOPROStoL 200 MCG TAB PO PRN (08:59)
[2024-05-26] MEDS ORDERED: OXYTOCIN 10 UNIT/ML 1 ML VIAL IM PRN (08:59)
[2024-05-26] MEDS ORDERED: TRANEXAMIC 1,000 MG/100ML-NACL 1,000 MG in EMPTY BAG 1 BAG IV PRN (08:59)
[2024-05-26] MEDS ORDERED: miSOPROStoL 200 MCG TAB RECTAL PRN (08:59)
[2024-05-26] MEDS ORDERED: CARBOPROST TROMETHAMINE 250 MCG/ML 1 ML AMP IM PRN (08:59)
[2024-05-26] MEDS ORDERED: METHYLERGONOVINE 0.2 MG/ML 1 ML AMP IM PRN (08:59)
[2024-05-26] MEDS ORDERED: LIDOCAINE 0.5% (PF) 5 MG/ML (50 ML SDV) SQ PRN (08:59)
[2024-05-26] MEDS ORDERED: TERBUTALINE 1 MG/ML VIAL SQ PRN (08:59)
[2024-05-26] MEDS ORDERED: KETOROLAC 15 MG/ML 1 ML VIAL IVP SCH (09:00)
[2024-05-26] MEDS ORDERED: ACETAMINOPHEN TAB 325 MG TAB PO PRN (09:01)
[2024-05-26] MEDS: miSOPROStoL 200 MCG TAB VAGINAL SCH (09:10)
[2024-05-26 09:54] VITALS: RESP 16
[2024-05-26 10:10] LABS: Basophils % (A) 0 %; Eosinophils # (A) 0.1 k/uL (0-0.7); Eosinophils % (A) 2 %; HCT 31.8 % (34.0-46.0); HGB 10.5 gm/dL (11.4-16.0); Lymphocytes # (A) 1.3 k/uL (1.0-4.8); Lymphocytes % (A) 25 %; MCH 28.6 pg (25.0-35.0); MCHC 33.1 g/dL (31.0-37.0); MCV 86.6 fL (80.0-100.0); Mean Platelet Volume 7.5; Monocytes # (A) 0.4 k/uL (0-1.0); Monocytes % (A) 7 %; Neutrophils # (A) 3.4 k/uL (1.3-7.7); Neutrophils % (A) 65 %; Platelet Count 304 k/uL (150-450); RBC 3.67 m/uL (3.80-5.40); RDW 13.7 % (11.5-15.5); WBC 5.2 k/uL (3.8-10.6)
[2024-05-26] MEDS: PROMETHAZINE 25 MG TAB PO PRN (10:42)
[2024-05-26] MEDS: LACTATED RINGERS 1,000 ML IV SCH (10:43)
--- NOTE | 2024-05-26 13:28 | P.PCN ---
Date of Procedure: 05/26/24 Preoperative Diagnosis: 1. Missed 15 weeks Postoperative Diagnosis: Same Procedure(s) Performed: Dilapan S insertion Anesthesia: none Surgeon: Khadra Estrella Estimated Blood Loss (ml): 1 IV fluids (ml): 0 Urine output (ml): 0 Pathology: none sent Condition: stable Disposition: floor Indications for Procedure: Ms. Alvarado is a 39 year old at 15 weeks gestation with missed here for induction of labor Operative Findings: 5 Dilapan-S rods inserted into the cervix Description of Procedure: The risks (including bleeding, infection, ruptured membranes, onset of labor, cervical tears or Dilapan-S breaking) and benefits of the procedure were discussed with the patient. Written informed consent was obtained. A sterile lighted speculum was placed into the vagina and the cervix was visualized. The cervix and vagina was cleaned with antiseptic solution. A forcep was used to grasp the cervical lip to straighten the cervical canal another ring forcep was used to grasp the handle of the Dilapan-S isis and insert the isis through the external cervical os gradually and without force. This was repeated until adequate Dilapan-S rods were inserted. A total number of 5 rods were inserted. At the conclusion of the procedure there was no vaginal bleeding. The speculum and instruments were removed.
--- NOTE | 2024-05-26 17:27 | P.PROBDLV ---
Vaginal Delivery Note - . Vaginal Delivery Note: DATE OF SERVICE: 05/26/2024 PROCEDURE: Normal Vaginal Delivery ATTENDING: Dr. Khadra Estrella MD ESTIMATED BLOOD LOSS: 100 mL FINDINGS: 15 week female fetus PROCEDURE: Ms. Alvarado is a 39 year old at 15+ weeks presenting to labor and delivery for induction of labor for missed . The has been complicated by Trisomy 21 on NIPT testing, cystic hygroma, short femurs bilaterally, cystic hygroma, and worsening hydrops that utlimately lead to its demise. For further details, please review the admitting H&P. Two doses of vaginal misoprostol 400mcg were given along with Dilapan-S. The patient had a spontaneous vaginal delivery at 1612 with the placenta following promptly.Oxytocin was started to facilitate uterine tone. Uterine fundus was found to be firm and below the umbilicus upon fundal massage. Thorough examination of the cervix, vagina, periurethral area, and perineum revealed no lacerations. The patient is stable .
[2024-05-26 20:25] VITALS: BP 132/77; PULSE 92; TEMP 98.7
== END 2024-05-26 21:25 | disposition home or self-care (01) | DRG 779 ==
LOC: 4FBP 08:19
PROVIDERS: ADMIT Obstetrics & Gynecology; ATTEND Obstetrics & Gynecology
PROC: 0U7C7ZZ Dilation of Cervix, Via Natural or Artificial Opening (ICD-10-PCS; principal; 2024-05-26)
PROC: 10E0XZZ Delivery of Products of Conception, External Approach (ICD-10-PCS; 2024-05-26)
PROC: 3E0P7VZ Introduction of Hormone into Female Reproductive, Via Natural or Artificial Opening (ICD-10-PCS; 2024-05-26)
PROC: 3E033VJ Introduction of Other Hormone into Peripheral Vein, Percutaneous Approach (ICD-10-PCS; 2024-05-26)
DX: O02.1 Missed abortion (principal); O99.354 Diseases of the nervous system complicating childbirth; O99.352 Diseases of the nervous system complicating pregnancy, second trimester; O36.8990 Maternal care for other specified fetal problems, unspecified trimester, not applicable or unspecified; G43.909 Migraine, unspecified, not intractable, without status migrainosus; O99.612 Diseases of the digestive system complicating pregnancy, second trimester; K21.9 Gastro-esophageal reflux disease without esophagitis; Z3A.15 15 weeks gestation of pregnancy
CPT/HCPCS: 59200; 85025; 86850; 86900; 86901